=== PATIENT | female | born 1940 | race Caucasian/White ===

== ENCOUNTER 2016-05-04 19:42 | Inpatient (IN) | payer MEDICARE ==
[~2016-05-04] VITALS: Ht 167.6 cm; Wt 67.3 kg
[2016-05-04 19:43] VITALS: BP 121/59; PULSE 101; RESP 20; TEMP 98; O2SAT 93
[2016-05-04] MEDS ORDERED: cefTRIAXone INJ 2,000 MG in SODIUM CHLORIDE 0.9% INJ 100 ML IV STA (20:51)
[2016-05-04] MEDS ORDERED: AZITHROMYCIN INJ 500 MG in SODIUM CHLOR 0.9% 250 ML INJ 250 ML IV STA (20:51)
[2016-05-04] MEDS ORDERED: SODIUM CHLORIDE 0.9% FLUSH 5 ML FLUSH IVF PRN (21:00)
[2016-05-04] MEDS ORDERED: methylPREDNISolone SOD SUCC 125 MG/2 ML VIAL IVP ONE (21:00)
--- NOTE | 2016-05-04 21:02 | PD ---
HPI Chief Complaint: Respiratory Symptoms Time Seen by Provider: 20:51 Travel History International Travel<30 days: No Contact w/Intl Traveler<30days: No Traveled to known affect area: No History of Present Illness HPI The patient is a 75 year old female who presents to the [facility] emergency department with a history of cough and congestion that began a week ago. The patient reports that the cough is productive of yellow sputum. She reports that she did discuss this further with her airbrush artist photography, Dr. armstrong. She was started on a prednisone taper and Zithromax. She reports that she completed the course of these medications, however she continues to have worsening cough and shortness of breath with exertion. She has a history of COPD. She last used her nebulizer machine last night. The patient is on 2 L nasal cannula O2 at night and when necessary throughout the day. She denies having any chest pressure or chest pain. The patient denies recent fever, neck pain, abdominal pain, vomiting, diarrhea, urinary symptoms, or neurologic symptoms. [facility] Past Medical History Narrative Medical The patient's past medical history is significant for COPD. Past Surgical History Narrative Surgical The patient's past surgical history is significant for an appendectomy. Social History Alcohol Use: No Tobacco Use: No Substance Use: No Allergies-Medications (Allergen,Severity, Reaction): Coded Allergies: Codeine (Verified Allergy, Severe, Swelling, 05/04/16) Ciprofloxacin (Verified Allergy, Intermediate, Itching, 05/04/16) Review of Systems Except as stated in HPI: all other systems reviewed are Neg General / Constitutional: No: Fever Eyes: No: Visual changes HENT: Positive: Rhinorrhea, Congestion, No: Headaches Cardiovascular: Positive: Dyspnea on exertion, No: Chest Pain or Discomfort Respiratory: Positive: Cough, Shortness of Breath Gastrointestinal: No: Nausea, Vomiting, Diarrhea, Abdominal Pain Genitourinary: No: Dysuria Musculoskeletal: No: Pain Skin: No Rash Neurologic: No: Weakness, Focal Abnormalities, Change in Mentation, Slurred Speech, Sensory Disturbance Psychiatric: No: Depression Endocrine: No: Polydipsia Hematologic/Lymphatic: No: Easy Bruising Physical Exam Narrative General: The patient is a well-developed well-nourished female in no acute distress, saturating 93% on 3 L nasal cannula O2. Head and Neck exam: Head is normocephalic atraumatic. Eyes: EOMI, pupils are equal round and reactive to light. Nose: Midline septum with pink mucous membranes Mouth: Dentition unremarkable. Moist mucus membranes. Posterior oropharynx is not erythematous. No tonsillar hypertrophy. Uvula midline. Airway patent. Neck: No palpable lymphadenopathy. No nuchal rigidity. No thyromegaly. Cardiovascular: Regular rate and rhythm without murmurs, gallops, or rubs. Lungs: The patient has decreased breath sounds in bilateral bases with a frequent wet sounding cough on examination. Soft expiratory wheezes are audible to clear with coughing. No rhonchi are audible. No crackles. No accessory muscle use. Abdomen: Soft, without tenderness to palpation in all 4 quadrants of the abdomen. No guarding, rebound, or rigidity. Normal bowel sounds are audible. Extremities: No clubbing, cyanosis, or edema. 2+ pulses in all 4 extremities. No calf tenderness on palpation. Back: No spinous process tenderness to palpation. No costovertebral angle tenderness to palpation. Neurologic Exam: Grossly nonfocal. Skin Exam: No rash noted. Intact skin that is warm and dry. Data Data Last Documented VS Vital Signs Date Time Temp Pulse Resp B/P Pulse Ox O2 Delivery O2 Flow Rate FiO2 05/04/16 21:33 97 Nasal Cannula 2.00 05/04/16 21:05 22 05/04/16 19:43 98.0 101 121/59 Orders Electrocardiogram (05/04/16 20:51) Complete Blood Count With Diff (05/04/16 20:51) Comprehensive Metabolic Panel (05/04/16 20:51) Prothrombin Time / Inr (Pt) (05/04/16 20:51) Act Partial Throm Time (Ptt) (05/04/16 20:51) Lactic Acid Sepsis Protocol (05/04/16 20:51) Magnesium (Mg) (05/04/16 20:51) Lipase (05/04/16 20:51) Ckmb (Isoenzyme) Profile (05/04/16 20:51) Urinalysis - C+S If Indicated (05/04/16 20:51) Influenzae A/B Antigen (05/04/16 20:51) Blood Culture (05/04/16 20:51) Chest, Single Ap (05/04/16 20:51) Blood Glucose (05/04/16 20:51) Ecg Monitoring (05/04/16 20:51) Iv Access Insert/Monitor (05/04/16 20:51) Oximetry (05/04/16 20:51) Oxygen Administration (05/04/16 20:51) Ceftriaxone Inj (Rocephin Inj) (05/04/16 20:51) Azithromycin Inj (Zithromax Inj) (05/04/16 20:51) B-Type Natriuretic Peptide (05/04/16 20:51) Sodium Chloride 0.9% Flush (Ns Flush) (05/04/16 21:00) Methylprednisolone So Succ Inj (Solumedr (05/04/16 21:00) Albuterol-Ipratropium Neb (Duoneb Neb) (05/04/16 21:00) CKMB (05/04/16 21:10) CKMB% (05/04/16 21:10) Admit Order (Ed Use Only) (05/04/16 22:42) Consult Pulmonology (05/04/16 ) Labs Laboratory Tests Test 05/04/16 21:10 White Blood Count 15.7 TH/MM3 Red Blood Count 4.67 MIL/MM3 Hemoglobin 15.0 GM/DL Hematocrit 43.3 % Mean Corpuscular Volume 92.7 FL Mean Corpuscular Hemoglobin 32.1 PG Mean Corpuscular Hemoglobin 34.6 % Concent Red Cell Distribution Width 12.5 % Platelet Count 298 TH/MM3 Mean Platelet Volume 7.9 FL Neutrophils (%) (Auto) 60.2 % Lymphocytes (%) (Auto) 23.9 % Monocytes (%) (Auto) 12.6 % Eosinophils (%) (Auto) 2.9 % Basophils (%) (Auto) 0.4 % Neutrophils # (Auto) 9.5 TH/MM3 Lymphocytes # (Auto) 3.8 TH/MM3 Monocytes # (Auto) 2.0 TH/MM3 Eosinophils # (Auto) 0.5 TH/MM3 Basophils # (Auto) 0.1 TH/MM3 CBC Comment DIFF FINAL Differential Comment Prothrombin Time 11.4 SEC Prothromb Time International 1.0 RATIO Ratio Activated Partial 29.6 SEC Thromboplast Time Sodium Level 138 MEQ/L Potassium Level 3.6 MEQ/L Chloride Level 102 MEQ/L Carbon Dioxide Level 27.5 MEQ/L Anion Gap 9 MEQ/L Blood Urea Nitrogen 12 MG/DL Creatinine 0.88 MG/DL Estimat Glomerular Filtration 63 ML/MIN Rate Random Glucose 93 MG/DL Lactic Acid Level 1.1 mmol/L Calcium Level 8.5 MG/DL Magnesium Level 2.1 MG/DL Total Bilirubin 0.4 MG/DL Aspartate Amino Transf 15 U/L (AST/SGOT) Alanine Aminotransferase 23 U/L (ALT/SGPT) Alkaline Phosphatase 57 U/L Total Creatine Kinase 136 U/L Creatine Kinase MB 1.9 NG/ML B-Type Natriuretic Peptide 60 PG/ML Total Protein 6.8 GM/DL Albumin 3.2 GM/DL Lipase 97 U/L [facility] Medical Decision Making Medical Screen Exam Complete: Yes Emergency Medical Condition: Yes Medical Record Reviewed: Yes Interpretation(s) Last Impressions Chest X-Ray 05/04/162050 Signed Impressions: Service Date/Time: Wednesday, May 04, 2016 21:13 - CONCLUSION: Bibasilar consolidation. Underlying emphysema. Bhupendra Coe MD Differential Diagnosis COPD exacerbation, versus pneumonia, versus new-onset congestive heart failure, versus pulmonary embolism. Narrative Course During the course of the patients emergency department visit, the patients history, examination, and differential diagnosis were reviewed with the patient. The patient had IV access obtained and blood work sent for analysis. The patient was placed on a site monitor with oximetry and blood pressure monitoring. An EKG was done on arrival. The patient was noted to have a sinus rhythm with a sinus arrhythmia, short IN interval, heart rate of 85, moderate intraventricular conduction delay with QRS duration of [address] segment elevation or depression, T waves inverted in V1. Blood cultures times to worsen, lactic acid was sent for analysis. The patient was noted to have room air saturations of 88% and was placed on 3 L nasal cannula O2, her oxygen saturation went up to 97-98%. The patient was provided DuoNeb nebs 2, Solu-Medrol 125 mg IV, Rocephin 1 g IV , Zithromax 500 IV. The patients laboratory studies were reviewed and remarkable for a white count of 15.7, hemoglobin 15, platelets 298 with 12.6 monocytes, CMP is remarkable for GFR 63, albumin 3.2, BNP is 60, lactic acid is 1.1, PT PTT within normal limits, urinalysis unremarkable. Radiology studies were reviewed and remarkable for bibasilar consolidation on her chest x-ray. The patients results were discussed with the patient, including the plan of care. I explained that further testing and/ or monitoring is indicated based on the patients history, examination, and/ or laboratory findings. Therefore, I recommended admission for additional evaluation. The patient expressed understanding and was agreeable with this plan. The patient was admitted to the hospital in stable condition and sent to a bed under the care of Dr. Campos. Sepsis Criteria SIRS Criteria (2 or more): Heart rate over 90, WBC > 75370, < 4000 or > 10% bands Sepsis Criteria (SIRS+source): Infect source susp/known Criteria Outcome: Meets SIRS criteria, Meets sepsis criteria Physician Communication Physician Communication The patient's case is discussed with Dr. Smith who did agree to admit the patient for further evaluation and treatment at this time. Diagnosis Primary Impression: Pneumonia Qualified Code: J18.9 - Pneumonia of both lower lobes due to infectious organism Additional Impressions: Hypoxemia COPD exacerbation Admitting Information Admitting Physician Requests: it Yana Mascorro MD May 04, 2016 21:02
[2016-05-04 21:04] VITALS: RESP 18; O2SAT 95
[2016-05-04 21:33] VITALS: O2SAT 97
[2016-05-04] MEDS: RESP: ALBUTEROL 2.5 MG/IPRATROPIUM 0.5 MG NEB (SCH) INH (21:33)
--- NOTE | 2016-05-04 21:33 | RADRPT ---
EXAM DATE/TIME: 05/04/2016 21:13 [facility] COMPARISON: No previous studies available for comparison. INDICATIONS : Cough, congestion. Evaluate for pneumonia. MEDICAL HISTORY : None. SURGICAL HISTORY : None. ENCOUNTER: Initial ACUITY: 1 week PAIN SCORE: 0/10 LOCATION: Bilateral chest FINDINGS: Bibasilar infiltrate superimposed on emphysema noted. No effusion. No pneumothorax. Heart size within normal limits. Thoracic aorta is tortuous and atherosclerotic. CONCLUSION: Bibasilar consolidation. Underlying emphysema. Bhupendra Coe MD on May 04, 2016 at 21:31 Board Certified Radiologist. This report was verified electronically.
[2016-05-04 21:39] LABS: AUTOMATED NEUTROPHIL # 9.5 TH/MM3 (1.8-7.7); BASOPHIL # 0.1 TH/MM3 (0-0.2); BASOPHIL % 0.4 % (0.0-2.0); EOSINOPHIL # 0.5 TH/MM3 (0-0.4); EOSINOPHIL % 2.9 % (0.0-4.0); HEMATOCRIT 43.3 % (35.0-46.0); HEMO FLAGS DIFF FINAL; LYMPH % 23.9 % (9.0-44.0); LYMPHOCYTE # 3.8 TH/MM3 (1.0-4.8); MEAN CELL VOLUME 92.7 FL (80.0-100.0); MEAN CORPUSCULAR HEMOGLOBIN 32.1 PG (27.0-34.0); MEAN CORPUSCULAR HGB CONC 34.6 % (32.0-36.0); MONO % 12.6 % (0.0-8.0); NEUT % 60.2 % (16.0-70.0); PLATELET COUNT 298 TH/MM3 (150-450); RED BLOOD COUNT 4.67 MIL/MM3 (4.00-5.30); RED CELL DISTRIBUTION WIDTH 12.5 % (11.6-17.2); WHITE BLOOD COUNT 15.7 TH/MM3 (4.0-11.0)
[2016-05-04 21:54] LABS: APTT (PATIENT) 29.6 SEC (24.3-30.1); PROTHROMBIN TIME - PATIENT 11.4 SEC (9.8-11.6)
[2016-05-04 21:57] LABS: ANION GAP 9 MEQ/L (5-15); AST (GOT) 15 U/L (15-37); BICARBONATE 27.5 MEQ/L (21.0-32.0); BLOOD UREA NITROGEN 12 MG/DL (7-18); CHLORIDE 102 MEQ/L (98-107); GLOMERULAR FILTRATION RATE 63 ML/MIN (>89); MAGNESIUM 2.1 MG/DL (1.5-2.5); POTASSIUM 3.6 MEQ/L (3.5-5.1); SODIUM (NA) 138 MEQ/L (136-145)
[2016-05-04 22:00] LABS: ALKALINE PHOSPHATASE 57 U/L (45-117); ALT (GPT) 23 U/L (10-53); CREATINE KINASE 136 U/L (26-192); TOTAL BILIRUBIN ADULT 0.4 MG/DL (0.2-1.0)
[2016-05-04 22:14] LABS: CKMB 1.9 NG/ML (0.5-3.6)
[2016-05-04 22:55] VITALS: BP 125/65; PULSE 110; RESP 20; O2SAT 93
[2016-05-04 23:14] LABS: BLOOD, URINE NEG (NEG); GLUCOSE,URINE NEG (NEG); KETONE, URINE NEG (NEG); NITRITE,URINE NEG (NEG); PH, URINE 5.5 (5.0-8.5); SQUAMOUS EPITHELIAL CELL URINE 1 /hpf (0-5); URINE COLOR YELLOW (YELLW/STRAW)
[2016-05-04 23:31] LABS: COMMENT (UR) CATH-CULT NOT IND; CULTURE IF INDICATED CATH CULTURE NOT IND
[2016-05-04] MEDS ORDERED: NALOXONE HCL 0.4 MG/ML AMP IV PRN (23:45)
[2016-05-04] MEDS ORDERED: SODIUM CHLORIDE 0.9% FLUSH 5 ML FLUSH FLUSH PRN (23:45)
[2016-05-04] MEDS ORDERED: ACETAMINOPHEN 325 MG TAB PO ONE (23:45)
[2016-05-04] MEDS ORDERED: ACETAMINOPHEN 325 MG TAB PO PRN (23:45)
[2016-05-05] VITALS (9 sets, daily range): BP systolic 106–126; BP diastolic 58–75; PULSE 82–98; RESP 17–24; TEMP 97.8–99.8; O2SAT 93–97
[2016-05-05] MEDS: SODIUM CHLORIDE 0.9% FLUSH 5 ML FLUSH FLUSH SCH ×2 (00:09→20:32)
[2016-05-05 06:16] LABS: BASOPHIL % 0.1 % (0.0-2.0); EOSINOPHIL % 0.1 % (0.0-4.0); HEMATOCRIT 41.6 % (35.0-46.0); HEMO FLAGS DIFF FINAL; LYMPH % 8.7 % (9.0-44.0); LYMPHOCYTE # 1.3 TH/MM3 (1.0-4.8); MEAN CORPUSCULAR HGB CONC 34.4 % (32.0-36.0); MONO % 1.9 % (0.0-8.0); NEUT % 89.2 % (16.0-70.0); PLATELET COUNT 278 TH/MM3 (150-450); RED BLOOD COUNT 4.47 MIL/MM3 (4.00-5.30); RED CELL DISTRIBUTION WIDTH 12.7 % (11.6-17.2); WHITE BLOOD COUNT 14.6 TH/MM3 (4.0-11.0)
[2016-05-05 07:06] LABS: ALKALINE PHOSPHATASE 54 U/L (45-117); ALT (GPT) 22 U/L (10-53); ANION GAP 10 MEQ/L (5-15); AST (GOT) 14 U/L (15-37); BICARBONATE 25.6 MEQ/L (21.0-32.0); BLOOD UREA NITROGEN 9 MG/DL (7-18); CHLORIDE 106 MEQ/L (98-107); GLOMERULAR FILTRATION RATE 80 ML/MIN (>89); POTASSIUM 4.4 MEQ/L (3.5-5.1); SODIUM (NA) 142 MEQ/L (136-145); TOTAL BILIRUBIN ADULT 0.3 MG/DL (0.2-1.0)
[2016-05-05] MEDS ORDERED: TIOT1AER INH (09:06)
[2016-05-05] MEDS ORDERED: BENZ100 PO (09:06)
[2016-05-05] MEDS ORDERED: BECL0.07 INH (09:06)
[2016-05-05] MEDS ORDERED: ALBU1.25 NEB (09:06)
[2016-05-05] MEDS ORDERED: PREM0.3T2 PO (09:06)
--- NOTE | 2016-05-05 16:11 | HHI.HP ---
History of Present Illness Service Attending Primary Care Physician Luis Alberto Campos, DO Admission Diagnosis Pneumonia, COPD exacerbation Diagnoses: (1) Pneumonia Diagnosis: Principal (2) COPD exacerbation Diagnosis: Secondary (3) Hypoxemia Diagnosis: Secondary History of Present Illness This is a very pleasant 75 year old female who came to the ED with dyspnea and unrelenting productive cough. She follows with Dr. Mikael Steen for chronic COPD and had started taking azithromycin and medrol dose-cristobal per his instructions but became more SOB and came to the ED. She was treated with IV antibiotics, steroids and nebulizers. She is currently stable and feeling better on nasal canula O2 Sepsis Criteria SIRS Criteria (2 or more): Heart rate over 90, RR > 20 or PaCO2 < 32, WBC > 54120, < 4000 or > 10% bands Sepsis Criteria (SIRS+source): Infect source susp/known Criteria Outcome: Meets SIRS criteria, Meets sepsis criteria Review of Systems Respiratory: COMPLAINS OF: Cough, Wheezing, Sputum production, Shortness of breath Past Family Social History Allergies: Coded Allergies: Codeine (Verified Allergy, Severe, Swelling, 05/04/16) Ciprofloxacin (Verified Allergy, Intermediate, Itching, 05/04/16) Past Medical History COPD Past Surgical History Appendectomy Reported Medications Reported Meds & Active Scripts Active Reported Prempro Blister Pack (Estrogens Conj/Medroxyprogest Acet) 0.3-1.5 Mg Tab 1 Tab PO DAILY Tessalon Perles (Benzonatate) 100 Mg Cap 100 Mg PO TID PRN Albuterol Neb (Albuterol Sulfate) 1.25 Mg/3 Ml Neb 1.25 Mg NEB Q4HR NEB PRN Qvar Inh (Beclomethasone Dipropionate) 40 Mcg/Act Aero 1 Puff INH BID Stiolto Respimat Inh (Tiotropium-Olodaterol Inh) 2.5-2.5 Mcg/Act Aero 2 Puff INH DAILY Active Ordered Medications Current Medications Medications (Trade) Dose Ordered Sig/Tigist Route Start Time Stop Time Status Last Admin (NS Flush) 2 ml UNSCH PRN FLUSH 05/04/16 23:45 (NS Flush) 2 ml BID FLUSH 05/05/16 09:00 05/05/16 00:09 (Tylenol) 650 mg Q4H PRN PO 05/04/16 23:45 (Narcan Inj) 0.4 mg UNSCH PRN IV 05/04/16 23:45 Family History Mother at age 73 of CVA, Father at age 73 of emphysema. Social History Quit smoking 20 years ago. Physical Exam Vital Signs Vital Signs Date Time Temp Pulse Resp B/P Pulse Ox O2 Delivery O2 Flow Rate FiO2 05/05/16 14:07 95 Nasal Cannula 2 05/05/16 12:00 82 24 124/74 95 Nasal Cannula 2 05/05/16 10:15 Room Air 05/05/16 09:34 98 20 126/75 93 Nasal Cannula 2 05/05/16 07:52 97 3.00 05/05/16 07:52 88 18 106/58 95 Nasal Cannula 2 05/05/16 06:24 85 20 114/60 95 Nasal Cannula 05/04/16 22:55 110 20 125/65 93 Nasal Cannula 05/04/16 21:33 97 Nasal Cannula 2.00 05/04/16 21:05 22 05/04/16 21:04 18 95 Nasal Cannula 05/04/16 21:03 95 Nasal Cannula 2 05/04/16 19:43 98.0 101 20 121/59 93 Room Air Physical Exam GENERAL: Well-nourished, well-developed patient. SKIN: Warm and dry. HEAD: Normocephalic. EYES: No scleral icterus. No injection or drainage. NECK: Supple, trachea midline. No JVD or lymphadenopathy. CARDIOVASCULAR: Regular rate and rhythm without murmurs, gallops, or rubs. RESPIRATORY: Breath sounds equal, diminished bilaterally with scatterred rhonchi , occasional expiratory wheeze, productive cough. No accessory muscle use. GASTROINTESTINAL: Abdomen soft, non-tender, nondistended. EXTREMITIES: No cyanosis, or edema. NEUROLOGICAL: Awake, alert, and oriented x 3. Non-focal. Laboratory Laboratory Tests Test 05/04/16 05/04/16 05/05/16 21:10 22:50 05:52 White Blood Count 15.7 14.6 Red Blood Count 4.67 4.47 Hemoglobin 15.0 14.3 Hematocrit 43.3 41.6 Mean Corpuscular Volume 92.7 93.0 Mean Corpuscular Hemoglobin 32.1 32.0 Mean Corpuscular Hemoglobin 34.6 34.4 Concent Red Cell Distribution Width 12.5 12.7 Platelet Count 298 278 Mean Platelet Volume 7.9 7.8 Neutrophils (%) (Auto) 60.2 89.2 Lymphocytes (%) (Auto) 23.9 8.7 Monocytes (%) (Auto) 12.6 1.9 Eosinophils (%) (Auto) 2.9 0.1 Basophils (%) (Auto) 0.4 0.1 Neutrophils # (Auto) 9.5 13.0 Lymphocytes # (Auto) 3.8 1.3 Monocytes # (Auto) 2.0 0.3 Eosinophils # (Auto) 0.5 0.0 Basophils # (Auto) 0.1 0.0 CBC Comment DIFF FINAL DIFF FINAL Differential Comment Prothrombin Time 11.4 Prothromb Time International 1.0 Ratio Activated Partial 29.6 Thromboplast Time Sodium Level 138 142 Potassium Level 3.6 4.4 Chloride Level 102 106 Carbon Dioxide Level 27.5 25.6 Anion Gap 9 10 Blood Urea Nitrogen 12 9 Creatinine 0.88 0.71 Estimat Glomerular Filtration 63 80 Rate Random Glucose 93 152 Lactic Acid Level 1.1 Calcium Level 8.5 8.7 Magnesium Level 2.1 Total Bilirubin 0.4 0.3 Aspartate Amino Transf 15 14 (AST/SGOT) Alanine Aminotransferase 23 22 (ALT/SGPT) Alkaline Phosphatase 57 54 Total Creatine Kinase 136 Creatine Kinase MB 1.9 B-Type Natriuretic Peptide 60 Total Protein 6.8 6.5 Albumin 3.2 1.9 Lipase 97 Urine Color YELLOW Urine Turbidity CLEAR Urine pH 5.5 Urine Specific [place] 1.011 Urine Protein NEG Urine Glucose (UA) NEG Urine Ketones NEG Urine Occult Blood NEG Urine Nitrite NEG Urine Bilirubin NEG Urine Urobilinogen LESS THAN 2.0 Urine Leukocyte Esterase NEG Urine RBC LESS THAN 1 Urine WBC LESS THAN 1 Urine Squamous Epithelial 1 Cells Microscopic Urinalysis Comment CATH-CULT NOT IND Date/Time Procedure Status Source Growth 05/05/16 14:05 Gram Stain Received Sputum Expectorated Sputum Pending 05/05/16 14:05 Sputum Culture Received Sputum Expectorated Sputum Pending 05/04/16 21:10 Aerobic Blood Culture - Preliminary Resulted Blood Peripheral NO GROWTH IN 1 DAY 05/04/16 21:10 Anaerobic Blood Culture - Preliminary Resulted Blood Peripheral NO GROWTH IN 1 DAY Result Diagram: 05/05/16 0552 05/05/1652 Imaging Last Impressions Chest X-Ray 05/04/162050 Signed Impressions: Service Date/Time: Wednesday, May 04, 2016 21:13 - CONCLUSION: Bibasilar consolidation. Underlying emphysema. Bhupendra Coe MD Assessment and Plan Problem List: (1) Hypoxemia Status: Acute Plan: Stable on O2 via NC. (2) Pneumonia Status: Acute Plan: On antibiotics, pulmonary consultation to Dr. Steen. (3) COPD exacerbation Status: Acute Plan: Wheezing, dyspneic on admission, home meds resumed. Improving. (4) Cough Status: Acute Plan: Sputum specimen ordered. Assessment and Plan Assessment and plan d/w pt., RN, Dr. Campso. Problem Qualifiers (1) Pneumonia: Qualified Code: J18.9 - Pneumonia of both lower lobes due to infectious organism Anahi Hoang May 05, 2016 16:11
[2016-05-05] MEDS ORDERED: NON-FORMULARY DRUG (Tiotropium-Olodaterol Inh (Stiolto Respimat Inh) 2 PUFF) INH SCH (16:15)
[2016-05-05] MEDS: BENZONATATE 100 MG CAP PO PRN (17:34)
--- NOTE | 2016-05-05 18:37 | EKG ---
Date Performed: 05/04/2016 Time Performed: 20:44:04 PTAGE: 75 years EKG: Sinus rhythm WITH SINUS ARRHYTHMIA WITH SHORT AL INTERVAL MODERATE INTRAVENTRICULAR CONDUCTION DELAY MODERATE ST DEPRESSION ABNORMAL ECG NO PREVIOUS TRACING DOCTOR: Dimitris Estrada Interpretating Date/Time 05/05/2016 18:35:40
[2016-05-05] MEDS: RESP: ALBUTEROL 2.5 MG/IPRATROPIUM 0.5 MG NEB (SCH) NEB (19:11)
--- NOTE | 2016-05-05 20:01 | MB ---
cc: YVETTE MARSHALL DATE OF CONSULTATION 05/05/2016 HISTORY OF THE PRESENT ILLNESS Ms. Alegre is a 75-year-old white female whom I have followed for 3 years with moderately severe COPD. She was a former smoker of about 80-100 pack-years although she quit smoking back in the mid s. I last saw her in the office in January at which time she was stable although she had had an exacerbation of her COPD last summer. Her regimen included Qvar and Stiolto and oxygen for sleep. She had a nebulizer but rarely used it. Pulmonary functions are in the range of 40-50% with a low diffusing capacity. The patient has not previously been hospitalized with her disease but she had another recent exacerbation in late March, was treated with a Z-Zen and prednisone but symptoms persisted and she was more short of breath. I advised her to present to the emergency room for more acute therapy. She did so and on presentation was hypoxic and tachypneic. Received several aerosol treatments along with IV corticosteroids and oxygen and is feeling much better today. She had a chest x-ray which revealed bibasilar infiltrates. White count was 15,000. Initial blood cultures have been negative and a sputum is pending. She has been afebrile. She has had no hemoptysis. No chest pain. Not aware of fever. Cough and shortness of breath were the primary symptoms. No swelling in her legs. No unusual inhalation exposures or recent unusual travel. PAST MEDICAL HISTORY 1. Really otherwise unremarkable. No cardiovascular history. No history of malignancy. She does not have frequent exacerbations of her disease or any recent history of pneumonia. 2. She has had a prior appendectomy. SOCIAL HISTORY Former smoker. Rarely if ever uses alcohol. She lives alone, . No unusual animal exposures. FAMILY HISTORY Father of complications of COPD. Mother of thyroid disease and a history of strokes. Three children in good health. REVIEW OF SYSTEMS Other than that noted above no gastrointestinal symptoms, nausea, vomiting or change in bowel habits recently. No chronic edema. ALLERGIES CODEINE, CIPRO MAY CAUSE ITCHING. MEDICATIONS Reviewed in the EMR. PHYSICAL EXAMINATION GENERAL: Comfortable at rest. VITAL SIGNS: Afebrile, respirations 18, temperature is 98, blood pressure 120/60, O2 saturation 97% on 2 liters, pulse is 90. HEENT: Sclerae anicteric. Pharynx is clear. Mucous membranes are moist. No adenopathy in the neck or supraclavicular region. LUNGS: Her chest is actually quite clear, somewhat diminished but there was only faint wheezes. No congestion or rhonchi. HEART: Regular rhythm. No harsh murmur. No audible S3. EXTREMITIES: No peripheral edema, calf tenderness, cyanosis or clubbing. DISCUSSION Miss Alegre presents with persistent exacerbation of her underlying COPD. She has responded very well to initial therapy in the emergency room and I will continue her nebulized treatments three times a day, place her on Symbicort here in the hospital along with a short course of oral prednisone. She does have purulent sputum that I saw at the bedside. We will collect a sputum but I am going to put her on Amoxil as well. We will do a home O2 walk test tomorrow, if her oxygen saturation has returned to normal and she is feeling this well she could probably continue treatment as an outpatient. Further diagnostic and/or therapeutic intervention will depend on her ongoing response. R. MD HILDA Montoya/KK /6:41 PM /7:46 PM
[2016-05-05] MEDS: BUDESONIDE-FORMOTEROL 160/4.5 MCG INHALER INH SCH (20:36)
[2016-05-05] MEDS: AMOXICILLIN (TRIHYDRATE) 500 MG CAP PO SCH (20:36)
[2016-05-05] MEDS: predniSONE 20 MG TAB PO SCH (20:36)
[2016-05-05] MEDS ORDERED: BECLOMETHASONE DIPROPIONATE 40 MCG/ACT 8.7 GM INHALER INH SCH (21:00)
[2016-05-06] VITALS (10 sets, daily range): BP systolic 97–122; BP diastolic 53–73; PULSE 70–90; RESP 18–19; TEMP 97.6–98.2; O2SAT 92–97
[2016-05-06] MEDS: BENZONATATE 100 MG CAP PO PRN ×2 (04:48→17:18)
[2016-05-06] MEDS: RESP: ALBUTEROL 2.5 MG/IPRATROPIUM 0.5 MG NEB (SCH) NEB ×3 (07:50→19:03)
[2016-05-06] MEDS: SODIUM CHLORIDE 0.9% FLUSH 5 ML FLUSH FLUSH SCH ×2 (07:59→20:09)
[2016-05-06] MEDS: predniSONE 20 MG TAB PO SCH ×2 (08:00→20:10)
[2016-05-06] MEDS: BUDESONIDE-FORMOTEROL 160/4.5 MCG INHALER INH SCH ×2 (08:01→20:11)
[2016-05-06] MEDS: AMOXICILLIN (TRIHYDRATE) 500 MG CAP PO SCH ×2 (08:06→20:10)
[2016-05-06] MEDS ORDERED: CONJUGATED ESTROGENS PO SCH (09:00)
[2016-05-06] MEDS ORDERED: MEDROXYPROGESTERONE PO SCH (09:00)
[2016-05-06] MEDS ORDERED: [UNRECOGNIZED DRUG - OTHER] PO SCH (09:00)
[2016-05-06] MEDS ORDERED: PT:STIOLTO RESPIMAT INH SCH (09:00)
--- NOTE | 2016-05-06 09:43 | RADRPT ---
EXAM DATE/TIME: 05/06/2016 08:53 [facility] COMPARISON: CHEST SINGLE AP, May 04, 2016, 21:13. INDICATIONS : Cough and shortness of breath. MEDICAL HISTORY : Chronic obstructive pulmonary disease. SURGICAL HISTORY : None. ENCOUNTER: Initial ACUITY: 1 day PAIN SCORE: 0/10 LOCATION: Bilateral chest FINDINGS: There is severe bullous emphysema, worse on the right with crowding of the lung vasculature inferiorl y and some linear atelectasis or scarring. Trace pleural fluid bilaterally. Considering slight differ ences in technique probably no significant change from May 04. Heart size normal. Atherosclerotic an d tortuous aorta. CONCLUSION: 1. Bullous emphysema with mild hyperinflation. Trace pleural fluid. Linear scarring or atelectasis at the bases. Trell Shah MD on May 06, 2016 at 9:38 Board Certified Radiologist. This report was verified electronically.
--- NOTE | 2016-05-06 13:17 | HHI.PR ---
Subjective Remarks Feeling better today, still a little weak. Objective Vital Signs Date Time Temp Pulse Resp B/P Pulse Ox O2 Delivery O2 Flow Rate FiO2 05/06/16 12:18 97.9 78 18 98/60 95 05/06/16 09:20 3.00 05/06/16 08:37 98.2 70 19 97/53 95 05/06/16 08:07 90 05/06/16 07:54 92 Nasal Cannula 2.00 05/06/16 04:00 98.0 79 18 112/60 97 05/06/16 00:10 97.9 80 18 115/60 96 05/05/16 21:40 98.1 84 17 113/58 95 05/05/16 20:00 89 05/05/16 19:11 97 Nasal Cannula 2.00 05/05/16 16:00 99.8 83 20 113/61 95 05/05/16 14:30 97.8 82 20 119/69 95 05/05/16 14:07 95 Nasal Cannula 2 I/O 05/05/16 05/05/16 05/05/16 05/06/16 05/06/16 05/06/16 07:00 15:00 23:00 07:00 15:00 23:00 Intake Total 560 ml 750 ml 700 ml Output Total 0 ml Balance 560 ml 750 ml 700 ml Intake Oral 560 ml 750 ml 700 ml Output Urine Total 0 ml # Voids 2 2 # Bowel Movements 0 0 0 Result Diagram: 05/05/16 0552 05/05/16 0552 Imaging Last Impressions Chest X-Ray 05/06/16 0800 Signed Impressions: Service Date/Time: April 08:53 - CONCLUSION: 1. Bullous emphysema with mild hyperinflation. Trace pleural fluid. Linear scarring or atelectasis at the bases. Trell Shah MD Objective Remarks GENERAL: Well-nourished, well-developed patient. SKIN: Warm and dry. HEAD: Normocephalic. EYES: No scleral icterus. No injection or drainage. NECK: Supple, trachea midline. No JVD or lymphadenopathy. CARDIOVASCULAR: Regular rate and rhythm without murmurs, gallops, or rubs. RESPIRATORY: Breath sounds equal, diminished bilaterally. No wheezing. No accessory muscle use. GASTROINTESTINAL: Abdomen soft, non-tender, nondistended. EXTREMITIES: No cyanosis, or edema. NEUROLOGICAL: Awake, alert, and oriented x 3. Non-focal. Medications and IVs Current Medications Medications (Trade) Dose Ordered Sig/Tigist Route Start Time Stop Time Status Last Admin (NS Flush) 2 ml UNSCH PRN FLUSH 05/04/16 23:45 (NS Flush) 2 ml BID FLUSH 05/05/16 09:00 05/06/16 07:59 (Tylenol) 650 mg Q4H PRN PO 05/04/16 23:45 (Narcan Inj) 0.4 mg UNSCH PRN IV 05/04/16 23:45 (Tessalon) 100 mg TID PRN PO 05/05/16 16:15 05/06/16 04:48 (Symbicort 160-4.5 Inh) 1 puff Q12HR INH 05/05/16 21:00 05/06/16 08:01 (Deltasone) 20 mg BID PO 05/05/16 21:00 05/06/16 08:00 (Trimox) 500 mg BID PO 05/05/16 21:00 05/06/16 08:06 Patient Own Medication PT OWN MED: STIO... DAILY INH 05/06/16 09:00 Hold Patient Own Medication PT OWN MED: KATIE... DAILY PO 05/06/16 09:00 Hold Assessment and Plan Problem List: (1) Hypoxemia Status: Acute Plan: Stable on O2 via NC. D/W Dr. Steen, he is increasing home O2 to include daytime use. (2) Pneumonia Status: Acute Plan: On antibiotics, Dr. Steen following. Improving on therapy. (3) COPD exacerbation Status: Acute Plan: Improving. Likely DC tomorrow. Planning to stay with her daughter for a week or so until she feels better so declined [facility]. (4) Cough Status: Acute Plan: Sputum specimen shows no predominant morphology. Assessment and Plan Assessment and plan d/w pt., RN, Dr. Steen, Dr. Campos. Problem Qualifiers (1) Pneumonia: Qualified Code: J18.9 - Pneumonia of both lower lobes due to infectious organism Anahi Hoang May 06, 2016 13:17
[2016-05-07] VITALS: BP 109/64; PULSE 77; RESP 19; TEMP 97.7; O2SAT 96
[2016-05-07] MEDS: BENZONATATE 100 MG CAP PO PRN (01:44)
[2016-05-07 04:00] VITALS: BP 99/62; PULSE 62; RESP 18; TEMP 97.9; O2SAT 95
[2016-05-07 07:52] VITALS: PULSE 62
[2016-05-07] MEDS: AMOXICILLIN (TRIHYDRATE) 500 MG CAP PO SCH (07:57)
[2016-05-07] MEDS: predniSONE 20 MG TAB PO SCH (07:57)
[2016-05-07] MEDS: SODIUM CHLORIDE 0.9% FLUSH 5 ML FLUSH FLUSH SCH (07:58)
[2016-05-07] MEDS: BUDESONIDE-FORMOTEROL 160/4.5 MCG INHALER INH SCH (07:58)
[2016-05-07] MEDS: RESP: ALBUTEROL 2.5 MG/IPRATROPIUM 0.5 MG NEB (SCH) NEB ×2 (08:16→15:58)
[2016-05-07 08:18] VITALS: O2SAT 96
[2016-05-07 08:23] VITALS: BP 124/66; PULSE 79; RESP 20; TEMP 98.1; O2SAT 92
[2016-05-07 12:18] LABS: AUTOMATED NEUTROPHIL # 14.6 TH/MM3 (1.8-7.7); BASOPHIL # 0.1 TH/MM3 (0-0.2); BASOPHIL % 0.5 % (0.0-2.0); EOSINOPHIL % 0.2 % (0.0-4.0); HEMATOCRIT 41.6 % (35.0-46.0); LYMPHOCYTE # 1.9 TH/MM3 (1.0-4.8); MEAN CELL VOLUME 94.1 FL (80.0-100.0); MEAN CORPUSCULAR HEMOGLOBIN 31.9 PG (27.0-34.0); MEAN CORPUSCULAR HGB CONC 33.9 % (32.0-36.0); MONO % 4.9 % (0.0-8.0); NEUT % 83.4 % (16.0-70.0); PLATELET COUNT 308 TH/MM3 (150-450); RED BLOOD COUNT 4.42 MIL/MM3 (4.00-5.30); RED CELL DISTRIBUTION WIDTH 12.9 % (11.6-17.2); WHITE BLOOD COUNT 17.5 TH/MM3 (4.0-11.0)
[2016-05-07 12:27] LABS: HEMO FLAGS AUTO DIFF
[2016-05-07 12:32] LABS: BICARBONATE 30.6 MEQ/L (21.0-32.0); POTASSIUM 3.7 MEQ/L (3.5-5.1)
[2016-05-07 14:37] LABS: BANDS 5 % (0-6); METAMYELOCYTES 1 % (0-1); NEUTROPHIL # MANUAL DIFF 14.5 TH/MM3 (1.8-7.7); PLATELET ESTIMATE SMEAR NORMAL (NORMAL); PLATELET MORPHOLOGY NORMAL (NORMAL); POLYS (SEG NEUTROPHILS) 77 % (16-70); SCAN/DIFF FINAL DIFF MANUAL; WBC DIFF SAMPLE 100
[2016-05-07] MEDS ORDERED: SYMB160A INH (15:27)
[2016-05-07] MEDS ORDERED: PRED10 PO (15:27)
[2016-05-07] MEDS ORDERED: PRED20 PO (15:27)
[2016-05-07] MEDS ORDERED: AMOX500C PO (15:27)
[2016-05-07] MEDS ORDERED: IPRASOL NEB (15:27)
--- NOTE | 2016-05-07 15:32 | HHI.DS ---
Discharge Summary Admission Date May 04, 2016 at 22:46 Admitting Diagnosis Pneumonia, COPD exacerbation (1) Pneumonia Diagnosis: Principal (2) Hypoxemia Diagnosis: Secondary (3) COPD exacerbation Diagnosis: Secondary Brief History This is a very pleasant 75 year old female who came to the ED with dyspnea and unrelenting productive cough. She follows with Dr. Mikael Steen for chronic COPD and had started taking azithromycin and medrol dose-cristobal per his instructions but became more SOB and came to the ED. She was treated with IV antibiotics, steroids and nebulizers. She is currently stable and feeling better on nasal canula O2 CBC/BMP: 05/07/16 1209 05/07/16 1209 Significant Findings Laboratory Tests Test 05/04/16 05/05/16 05/07/16 21:10 05:52 12:09 White Blood Count 15.7 TH/MM3 14.6 TH/MM3 17.5 TH/MM3 (4.0-11.0) (4.0-11.0) (4.0-11.0) Monocytes (%) (Auto) 12.6 % (0.0-8.0) Neutrophils # (Auto) 9.5 TH/MM3 13.0 TH/MM3 14.6 TH/MM3 (1.8-7.7) (1.8-7.7) (1.8-7.7) Monocytes # (Auto) 2.0 TH/MM3 (0-0.9) Eosinophils # (Auto) 0.5 TH/MM3 (0-0.4) Estimat Glomerular Filtration 63 ML/MIN (>89) 80 ML/MIN (>89) 61 ML/MIN (>89) Rate Albumin 3.2 GM/DL 1.9 GM/DL (3.4-5.0) (3.4-5.0) Neutrophils (%) (Auto) 89.2 % 83.4 % (16.0-70.0) (16.0-70.0) Lymphocytes (%) (Auto) 8.7 % (9.0-44.0) Random Glucose 152 MG/DL 123 MG/DL (74-106) (74-106) Aspartate Amino Transf 14 U/L (15-37) (AST/SGOT) Neutrophils % (Manual) 77 % (16-70) Neutrophils # (Manual) 14.5 TH/MM3 (1.8-7.7) Imaging Last Impressions Chest X-Ray 05/06/16 0800 Signed Impressions: Service Date/Time: April 08:53 - CONCLUSION: 1. Bullous emphysema with mild hyperinflation. Trace pleural fluid. Linear scarring or atelectasis at the bases. Trell Shah MD PE at Discharge GENERAL: Well-nourished, well-developed patient. SKIN: Warm and dry. HEAD: Normocephalic. EYES: No scleral icterus. No injection or drainage. NECK: Supple, trachea midline. No JVD or lymphadenopathy. CARDIOVASCULAR: Regular rate and rhythm without murmurs, gallops, or rubs. RESPIRATORY: Breath sounds equal, diminished bilaterally. No wheezing. No accessory muscle use. GASTROINTESTINAL: Abdomen soft, non-tender, nondistended. EXTREMITIES: No cyanosis, or edema. NEUROLOGICAL: Awake, alert, and oriented x 3. Non-focal. Hospital Course Admitted with dyspnea, found to have PNA. Pulmonology was consulted and antibiotics, steroids and nebulizers given with subsequent improvement. Patient was previously on O2 only atnight, but will now need it additionally during the day. She will follow with Dr. Steen for further modifications. On she was deemed stable for discharge home with her daughter. C was refused. Pt Condition on Discharge: Stable Discharge Disposition: Discharge Home Discharge Instructions DIET: Follow Instructions for: As Tolerated, No Restrictions Activities you can perform: Regular-No Restrictions New Medications: Prednisone (Prednisone) 10 Mg Tab 10 MG PO BID Start after completing the Prednisone 20 mg twice daily prescription. Cough Days 7 Ref 0 TAB Amoxicillin (Amoxicillin) 500 Mg Cap 500 MG PO BID Cough #8 CAP Budesonide-Formoterol Inh (Symbicort Inh) 160-4.5 Mcg/Act Aero 1 PUFF INH Q12HR Cough #1 INHALER Ipratropium-Albuterol Neb (Duoneb) 0.5-2.5 Mg/3 Ml Neb 1 AMPULE NEB TID NEB Cough Days 30 ML Prednisone (Prednisone) 20 Mg Tab 20 MG PO BID Cough Days 7 TAB Continued Medications: Albuterol Neb (Albuterol Neb) 1.25 Mg/3 Ml Neb 1.25 MG NEB Q4HR NEB PRN SHORTNESS OF BREATH #50 Ref 0 NEBULE Beclomethasone Inh (Qvar Inh) 40 Mcg/Act Aero 1 PUFF INH BID Asthma Management #1 Ref 0 INHALER Benzonatate (Tessalon Perles) 100 Mg Cap 100 MG PO TID PRN COUGH Ref 0 CAP Conjugated Estrogens-Medroxyprogesterone (Prempro Blister Pack) 0.3-1.5 Mg Tab 1 TAB PO DAILY Estrogen Supplements #1 Ref 0 PACK Tiotropium-Olodaterol Inh (Stiolto Respimat Inh) 2.5-2.5 Mcg/Act Aero 2 PUFF INH DAILY COPD #1 Ref 0 INHALER Anahi Hoang May 07, 2016 15:32
--- NOTE | 2016-05-13 08:37 | MD ---
cc: Ivelisse MARSHALL ADMISSION DATE: 05/04/2016 DISCHARGE DATE: 05/07/2016 HISTORY Ms. Alegre is a 75-year-old white female whom I have followed for several years with severe COPD but she has been remarkably stable. She has about 100 pack-year smoking history, quit back in the 90s. Has not been in the hospital in many years but was being treated as an outpatient for an exacerbation and simply was not getting better. She was brought into the emergency room, was noted to be hypoxic and tachypneic and was admitted. HOSPITAL COURSE She did well with aerosol treatments, a dose of corticosteroids and then the day before I put her on oral prednisone, Amoxil and Symbicort. She has done well with that. She is still hypoxic when up walking but is stable. She will be discharged home today by her primary physician. I will write her a prescription for prednisone. She has a nebulizer at home, she can use that as needed. She will resume her C02 and QVAR and complete an additional 5 days of amoxicillin. I will see her back in the office in 2 weeks. She will call if problems arise prior to that. MD HILDA Morales/PRABHU /1:23 PM /7:31 AM
== END 2016-05-07 17:29 | disposition home or self-care (01) | DRG 190 ==
LOC: NEPC 19:42 → NEDA 22:46 → NEDH 05-05 03:04 → N04A 05-05 14:13
PROVIDERS: ADMIT Family Medicine; ATTEND Family Medicine
DX: J44.0 Chronic obstructive pulmonary disease with (acute) lower respiratory infection (principal); J18.9 Pneumonia, unspecified organism; J44.1 Chronic obstructive pulmonary disease with (acute) exacerbation; R09.02 Hypoxemia; Z87.891 Personal history of nicotine dependence
CPT/HCPCS: 71010; 71020; 80048; 80053; 81001; 82550; 82552; 83605; 83690; 83735; 83880; 85007; 85025; 85027; 85610; 85730; 87040; 87070; 87205; 93005; 94620; 94640; 94664; 96374; 96375; J0456; J0696; J2930; J7050; J7512

== ENCOUNTER 2017-01-06 21:15 | Inpatient (IN) | payer MEDICARE ==
[~2017-01-06] VITALS: Ht 167.6 cm; Wt 66.7 kg
[~2017-01-06 21:15] MED LIST: ALBU1.25 NEB; AMOX500C PO; BECL0.07 INH; BENZ100 PO; IPRASOL NEB; PRED10 PO; PRED20 PO; PREM0.3T2 PO; SYMB160A INH; TIOT1AER INH
[2017-01-06 21:19] VITALS: BP 136/77; PULSE 103; RESP 22; TEMP 99.2; O2SAT 92
[2017-01-06] MEDS ORDERED: PRED20 PO (21:36)
[2017-01-06] MEDS ORDERED: methylPREDNISolone SOD SUCC 125 MG/2 ML VIAL IV PUSH ONE (21:45)
[2017-01-06] MEDS: RESP: ALBUTEROL 2.5 MG/IPRATROPIUM 0.5 MG NEB (SCH) INH ×2 (21:48→21:49)
[2017-01-06 21:52] VITALS: O2SAT 92
--- NOTE | 2017-01-06 22:07 | RADRPT ---
EXAM DATE/TIME: 01/06/2017 21:47 [facility] COMPARISON: CHEST SINGLE AP, May 04, 2016, 21:13. INDICATIONS : Short of breath. MEDICAL HISTORY : Chronic obstructive pulmonary disease. SURGICAL HISTORY : None. ENCOUNTER: Initial ACUITY: 1 day PAIN SCORE: 0/10 LOCATION: Bilateral chest FINDINGS: A single portable frontal view the chest shows a focal consolidation involving the right lung base. L eft lung is clear. No effusions. Heart is normal in size. Lungs are hyper aerated with bulla involvin g the right upper lobe. CONCLUSION: 1. Right lower lobe infiltrate. 2. Bullous emphysematous changes. Bill Alexandra Jr., MD on January 06, 2017 at 22:05 Board Certified Radiologist. This report was verified electronically.
[2017-01-06] MEDS ORDERED: AZITHROMYCIN INJ 500 MG in SODIUM CHLOR 0.9% 250 ML INJ 250 ML IV ONE (22:15)
[2017-01-06] MEDS ORDERED: cefTRIAXone INJ 1,000 MG in SODIUM CHLORIDE 0.9% INJ 100 ML IV ONE (22:15)
[2017-01-06 22:21] LABS: AUTOMATED NEUTROPHIL # 20.1 TH/MM3 (1.8-7.7); BASOPHIL # 0.1 TH/MM3 (0-0.2); BASOPHIL % 0.2 % (0.0-2.0); EOSINOPHIL # 0.1 TH/MM3 (0-0.4); EOSINOPHIL % 0.5 % (0.0-4.0); HEMATOCRIT 43.7 % (35.0-46.0); HEMO FLAGS DIFF FINAL; LYMPH % 5.6 % (9.0-44.0); LYMPHOCYTE # 1.3 TH/MM3 (1.0-4.8); MEAN CELL VOLUME 95.1 FL (80.0-100.0); MEAN CORPUSCULAR HEMOGLOBIN 31.4 PG (27.0-34.0); MONO % 8.8 % (0.0-8.0); NEUT % 84.9 % (16.0-70.0); PLATELET COUNT 295 TH/MM3 (150-450); RED BLOOD COUNT 4.59 MIL/MM3 (4.00-5.30); WHITE BLOOD COUNT 23.7 TH/MM3 (4.0-11.0)
[2017-01-06 22:27] LABS: BICARBONATE 24.5 MEQ/L (21.0-32.0); POTASSIUM 3.6 MEQ/L (3.5-5.1)
--- NOTE | 2017-01-06 22:29 | PD ---
HPI Chief Complaint: Respiratory Symptoms Time Seen by Provider: 21:34 Travel History International Travel<30 days: No Contact w/Intl Traveler<30days: No Traveled to known affect area: No History of Present Illness HPI 76-year-old female that presents to the ED for evaluation of respiratory symptoms. Patient has a history of COPD and uses oxygen at home. Patient has a history of smoking. Patient has been admitted before for COPD exacerbations. Per patient his been having back cough and congestion. Some chest discomfort with cough but mostly to the head. Per patient she has some congestion and runny nose. States having some chills and sweats. Takes no blood thinners. No history of heart disease. States that she's had this problem 10 days and is not getting better. She went to see her doctor who prescribed her prednisone. She has not improved since. She was not given antibiotics. She states compliant with her inhaler but today she went to visit her son and she did not have any of her inhalers or her nebulizers and became more short of breath. She gave herself breathing treatment when she got home she was still short of breath which is what prompted her evaluation today. Denies any abdominal pain. No nausea or vomiting. no other medical issues. PFSH Past Medical History Cancer: No Cardiovascular Problems: No Congestive Heart Failure: No COPD: Yes Coronary Artery Disease: No Diabetes: No Endocrine: No Gastrointestinal Disorders: Yes Genitourinary: No Hiatal Hernia: Yes Immune Disorder: No Musculoskeletal: Yes (r shoulder tendenitis - rotator cuff) Neurologic: No Psychiatric: No Reproductive: No Respiratory: Yes Tetanus Vaccination: < 5 Years Influenza Vaccination: Yes Past Surgical History Abdominal Surgery: Yes (appeendix) Appendectomy: Yes Other Surgery: Yes Social History Alcohol Use: No Tobacco Use: No Substance Use: No Allergies-Medications (Allergen,Severity, Reaction): Coded Allergies: codeine (Unverified Allergy, Severe, Swelling, 01/06/17) ciprofloxacin (Unverified Allergy, Intermediate, Itching, 01/06/17) levofloxacin (Verified Allergy, Unknown, 01/06/17) could not sleep awake for 40 hours Reported Meds & Prescriptions Reported Meds & Active Scripts Active Duoneb (Ipratropium-Albuterol Neb) 0.5-2.5 Mg/3 Ml Neb 1 Ampule NEB TID NEB 30 Days Symbicort Inh (Budesonide/Formoterol Fumarate) 160-4.5 Mcg/Act Aero 1 Puff INH Q12HR Reported Prednisone 20 Mg Tab 20 Mg PO DAILY Prempro Blister Pack (Estrogens Conj/Medroxyprogest Acet) 0.3-1.5 Mg Tab 1 Tab PO DAILY Tessalon Perles (Benzonatate) 100 Mg Cap 100 Mg PO TID PRN Albuterol Neb (Albuterol Sulfate) 1.25 Mg/3 Ml Neb 1.25 Mg NEB Q4HR NEB PRN Qvar Inh (Beclomethasone Dipropionate) 40 Mcg/Act Aero 1 Puff INH BID Stiolto Respimat Inh (Tiotropium-Olodaterol Inh) 2.5-2.5 Mcg/Act Aero 2 Puff INH DAILY Review of Systems Except as stated in HPI: all other systems reviewed are Neg Physical Exam Narrative GENERAL: SKIN: Warm and dry. HEAD: Atraumatic. Normocephalic. EYES: Pupils equal and round. No scleral icterus. No injection or drainage. ENT: No nasal bleeding or discharge. Mucous membranes pink and moist. Tongue is midline. No uvula deviation. NECK: Trachea midline. No JVD. CARDIOVASCULAR: Regular rate and rhythm. No murmurs, S3, S4. RESPIRATORY: No accessory muscle use. Clear to auscultation. Breath sounds equal bilaterally. GASTROINTESTINAL: Abdomen soft, non-tender, nondistended. Hepatic and splenic margins not palpable. MUSCULOSKELETAL: Extremities without clubbing, cyanosis, or edema. No obvious deformities. Full range of motion of the upper and lower extremities bilaterally. 2+ pulses bilaterally. NEUROLOGICAL: Awake and alert. No obvious cranial nerve deficits. Motor grossly within normal limits. Five out of 5 muscle strength in the arms and legs. Normal speech. PSYCHIATRIC: Appropriate mood and affect; insight and judgment normal. Data Data Last Documented VS Vital Signs Date Time Temp Pulse Resp B/P (MAP) Pulse Ox O2 Delivery O2 Flow Rate FiO2 01/06/17 21:52 92 Nasal Cannula 3.00 01/06/17 21:32 25 01/06/17 21:19 99.2 103 136/77 (96) Orders Orders Electrocardiogram (01/06/17 21:40) Basic Metabolic Panel (Bmp) (01/06/17 21:40) Complete Blood Count With Diff (01/06/17 21:40) Chest, Single Ap (01/06/17 21:40) Ecg Monitoring (01/06/17 21:40) Iv Access Insert/Monitor (01/06/17 21:40) Oximetry (01/06/17 21:40) Oxygen Administration (01/06/17 21:40) Methylprednisolone So Succ Inj (Solumedr (01/06/17 21:45) Albuterol-Ipratropium Neb (Duoneb Neb) (01/06/17 21:45) D-Dimer (01/06/17 21:47) Ceftriaxone Inj (Rocephin Inj) (01/06/17 22:15) Azithromycin Inj (Zithromax Inj) (01/06/17 22:15) Ct Pulmonary Angiogram (01/06/17 ) Labs Laboratory Tests Test 01/06/17 21:53 White Blood Count 23.7 TH/MM3 Red Blood Count 4.59 MIL/MM3 Hemoglobin 14.4 GM/DL Hematocrit 43.7 % Mean Corpuscular Volume 95.1 FL Mean Corpuscular Hemoglobin 31.4 PG Mean Corpuscular Hemoglobin Concent 33.0 % Red Cell Distribution Width 13.0 % Platelet Count 295 TH/MM3 Mean Platelet Volume 8.3 FL Neutrophils (%) (Auto) 84.9 % Lymphocytes (%) (Auto) 5.6 % Monocytes (%) (Auto) 8.8 % Eosinophils (%) (Auto) 0.5 % Basophils (%) (Auto) 0.2 % Neutrophils # (Auto) 20.1 TH/MM3 Lymphocytes # (Auto) 1.3 TH/MM3 Monocytes # (Auto) 2.1 TH/MM3 Eosinophils # (Auto) 0.1 TH/MM3 Basophils # (Auto) 0.1 TH/MM3 CBC Comment DIFF FINAL Differential Comment D-Dimer Quantitative (PE/DVT) 0.71 MG/L FEU Blood Urea Nitrogen 18 MG/DL Creatinine 0.81 MG/DL Random Glucose 120 MG/DL Calcium Level 9.0 MG/DL Sodium Level 138 MEQ/L Potassium Level 3.6 MEQ/L Chloride Level 104 MEQ/L Carbon Dioxide Level 24.5 MEQ/L Anion Gap 10 MEQ/L Estimat Glomerular Filtration Rate 69 ML/MIN MDM Medical Decision Making Medical Screen Exam Complete: Yes Emergency Medical Condition: Yes Medical Record Reviewed: Yes Interpretation(s) Last Impressions Chest X-Ray 01/06/172139 Signed Impressions: Service Date/Time: December 21:47 - CONCLUSION: 1. Right lower lobe infiltrate. 2. Bullous emphysematous changes. Bill Alexandra Jr., MD CBC Diagram 01/06/17 21:53 Differential Diagnosis Pneumonia versus COPD exacerbation versus COPD versus congestion versus URI versus less likely but still possible PE Narrative Course 76-year-old female that presents to the ED for evaluation of cold-like symptoms. Patient was properly examined and was found to have signs and symptoms consistent with appears to be superficial laceration on was able pneumonia. She is somewhat tachycardic on exam and hypoxic even with oxygen. D -dimer was added to her blood work to rule out any sign of PE. Labs and imaging were ordered. Labs and imaging showed possible pneumonia. D-dimer also elevated. This time I cannot completely rule out PE so CT pulmonary diagram was ordered. Case was signed out to my attending pending admission for pneumonia or PE or both. Diagnosis Primary Impression: COPD exacerbation Additional Impression: Pneumonia Qualified Codes: J18.1 - Lobar pneumonia, unspecified organism Nolan Ferrer Jan 06, 2017 22:29
[2017-01-06 22:57] VITALS: O2SAT 98
[2017-01-06] MEDS ORDERED: IOHEXOL 350 MG/ML 10 ML VIAL (for RAD DIAG) IVCONTRAST ONE (23:31)
--- NOTE | 2017-01-06 23:49 | RADRPT ---
EXAM DATE/TIME: 01/06/2017 23:28 [facility] COMPARISON: No previous studies available for comparison. INDICATIONS : Short of breath, Evaluate for pulmonary emoblism IV CONTRAST: 69 cc Omnipaque 350 (iohexol) IV RADIATION DOSE: 23.05 CTDIvol (mGy) MEDICAL HISTORY : Chronic obstructive pulmonary disease. Hernia, hiatal. SURGICAL HISTORY : None. ENCOUNTER: Initial ACUITY: 1 day PAIN SCALE: 3/10 LOCATION: chest TECHNIQUE: Volumetric scanning of the chest was performed using a pulmonary embolism protocol MIP images were re constructed. Using automated exposure control and adjustment of the mA and/or kV according to patien t size, radiation dose was kept as low as reasonably achievable to obtain optimal diagnostic quality images. DICOM format image data is available electronically for review and comparison. Follow-up recommendations for detected pulmonary nodules are based at a minimum on nodule size and pa tient risk factors according to Fleischner Society Guidelines. FINDINGS: Examination of the pulmonary vasculature demonstrates good filling of the main, lobar and segmental b ranches. There are no filling defects to suggest pulmonary embolism. Multiplanar reconstructions are also unremarkable. There is diffuse panlobular emphysema and paraseptal emphysema. There is right lower lobe collapse. C entrally obstructing lesion is not excluded. No pleural effusions are identified. Examination of the mediastinum demonstrates no abnormally enlarged lymph nodes by CT criteria. No axi llary or hilar abnormalities are identified. Coronary artery calcifications are present. There is hyp odensity within the liver compatible with cyst measuring 2 cm in segment 4. CONCLUSION: 1. No evidence of pulmonary embolism. 2. Right lower lobe collapse. Centrally obstructing lesion is not excluded. Bronchoscopy could be per formed for further evaluation if clinically indicated. 3. Severe emphysema Rolando Robles MD on January 06, 2017 at 23:43 Board Certified Radiologist. This report was verified electronically.
[2017-01-07] VITALS (9 sets, daily range): BP systolic 105–142; BP diastolic 60–79; PULSE 78–98; RESP 17–28; TEMP 96.1–98.7; O2SAT 93–96
--- NOTE | 2017-01-07 00:37 | PD ---
Physical Exam Narrative Patient was seen by me and my clinical trial assistant. Data Data Last Documented VS Vital Signs Date Time Temp Pulse Resp B/P (MAP) Pulse Ox O2 Delivery O2 Flow Rate FiO2 01/06/17 22:57 98 Nasal Cannula 3.00 01/06/17 21:32 25 01/06/17 21:19 99.2 103 Orders Orders Electrocardiogram (01/06/17 21:40) Basic Metabolic Panel (Bmp) (01/06/17 21:40) Complete Blood Count With Diff (01/06/17 21:40) Chest, Single Ap (01/06/17 21:40) Ecg Monitoring (01/06/17 21:40) Iv Access Insert/Monitor (01/06/17 21:40) Oximetry (01/06/17 21:40) Oxygen Administration (01/06/17 21:40) Methylprednisolone So Succ Inj (Solumedr (01/06/17 21:45) Albuterol-Ipratropium Neb (Duoneb Neb) (01/06/17 21:45) D-Dimer (01/06/17 21:47) Ceftriaxone Inj (Rocephin Inj) (01/06/17 22:15) Azithromycin Inj (Zithromax Inj) (01/06/17 22:15) Ct Pulmonary Angiogram (01/06/17 ) Iohexol 350 Inj (Omnipaque 350 Inj) (01/06/17 23:31) Labs Laboratory Tests Test 01/06/17 21:53 White Blood Count 23.7 TH/MM3 Red Blood Count 4.59 MIL/MM3 Hemoglobin 14.4 GM/DL Hematocrit 43.7 % Mean Corpuscular Volume 95.1 FL Mean Corpuscular Hemoglobin 31.4 PG Mean Corpuscular Hemoglobin Concent 33.0 % Red Cell Distribution Width 13.0 % Platelet Count 295 TH/MM3 Mean Platelet Volume 8.3 FL Neutrophils (%) (Auto) 84.9 % Lymphocytes (%) (Auto) 5.6 % Monocytes (%) (Auto) 8.8 % Eosinophils (%) (Auto) 0.5 % Basophils (%) (Auto) 0.2 % Neutrophils # (Auto) 20.1 TH/MM3 Lymphocytes # (Auto) 1.3 TH/MM3 Monocytes # (Auto) 2.1 TH/MM3 Eosinophils # (Auto) 0.1 TH/MM3 Basophils # (Auto) 0.1 TH/MM3 CBC Comment DIFF FINAL Differential Comment D-Dimer Quantitative (PE/DVT) 0.71 MG/L FEU Blood Urea Nitrogen 18 MG/DL Creatinine 0.81 MG/DL Random Glucose 120 MG/DL Calcium Level 9.0 MG/DL Sodium Level 138 MEQ/L Potassium Level 3.6 MEQ/L Chloride Level 104 MEQ/L Carbon Dioxide Level 24.5 MEQ/L Anion Gap 10 MEQ/L Estimat Glomerular Filtration Rate 69 ML/MIN [facility] Supervised Visit with JAIRON: Yes Interpretation(s) Last Impressions Chest X-Ray 01/06/17 2140 Signed Impressions: Service Date/Time: , January 06, 2017 21:47 - CONCLUSION: 1. Right lower lobe infiltrate. 2. Bullous emphysematous changes. Bill Alexandra Jr., MD CT Angiography 01/06/17 0000 Signed Impressions: Service Date/Time: , January 06, 2017 23:28 - CONCLUSION: 1. No evidence of pulmonary embolism. 2. Right lower lobe collapse. Centrally obstructing lesion is not excluded. Bronchoscopy could be performed for further evaluation if clinically indicated. 3. Severe emphysema Rolando Robles MD Narrative Course Patient was given DuoNeb treatment, Solu-Medrol IV, Rocephin IV and Zithromax IV. Diagnosis Primary Impression: Pneumonia Qualified Codes: J18.1 - Lobar pneumonia, unspecified organism Additional Impression: COPD with acute exacerbation Admitting Information Admitting Physician Requests: Admit Tapan Farias MD Jan 07, 2017 00:37
[2017-01-07] MEDS ORDERED: LACTULOSE SYRUP 20 GM/30 ML CUP PO PRN (01:00)
[2017-01-07] MEDS ORDERED: SODIUM CHLORIDE 0.9% FLUSH 10 ML FLUSH IV FLUSH PRN (01:00)
[2017-01-07] MEDS ORDERED: ONDANSETRON HCL 4 MG/2 ML VIAL IVP PRN (01:00)
[2017-01-07] MEDS ORDERED: SENNOSIDES 8.6 MG TAB PO PRN (01:00)
[2017-01-07] MEDS ORDERED: ACETAMINOPHEN/HYDROcodone 325 MG/5 MG TAB PO PRN (01:00)
[2017-01-07] MEDS ORDERED: BISACODYL 10 MG SUPP RECTAL PRN (01:00)
[2017-01-07] MEDS ORDERED: ACETAMINOPHEN 325 MG TAB PO PRN (01:00)
[2017-01-07] MEDS ORDERED: NALOXONE HCL 0.4 MG/ML AMP IV PUSH PRN (01:00)
[2017-01-07] MEDS ORDERED: MORPHINE SULFATE 4 MG/ML INJ IV PUSH PRN (01:00)
[2017-01-07] MEDS ORDERED: ACETAMINOPHEN/HYDROcodone 325 MG/7.5 MG TAB PO PRN (01:00)
[2017-01-07] MEDS ORDERED: ZOLPIDEM TARTRATE 5 MG TAB PO PRN ×2 (01:00→08:45)
[2017-01-07] MEDS: ENOXAPARIN SODIUM 40 MG/0.4 ML SYRINGE SQ SCH (01:45)
[2017-01-07] MEDS: SODIUM CHLOR 0.9% 1000 ML INJ 1,000 ML IV SCH ×3 (01:45→20:58)
[2017-01-07] MEDS: BENZONATATE 100 MG CAP PO PRN ×2 (02:00→10:07)
[2017-01-07] MEDS: RESP: ALBUTEROL 2.5 MG/IPRATROPIUM 0.5 MG NEB (SCH) NEB ×3 (08:24→21:11)
--- NOTE | 2017-01-07 08:33 | HHI.HP ---
History of Present Illness Service Medical Primary Care Physician Luis Alberto Campos, DO Admission Diagnosis pneumonia. Acute exacerbation COPD. Diagnoses: (1) Pneumonia (2) COPD with acute exacerbation History of Present Illness 76-year-old female that presents to the ED for evaluation of respiratory symptoms. Patient has a history of COPD and uses oxygen at home. Patient has a history of smoking quit over 20 years ago States that she's had this problem 10 days and is not getting better. She went to see her doctor who prescribed her prednisone. She has not improved since. She was not given antibiotics. She states compliant with her inhaler but today she went to visit her son and she did not have any of her inhalers or her nebulizers and became more short of breath. She gave herself breathing treatment when she got home she was still short of breath which is what prompted her evaluation today. Denies any abdominal pain. No nausea or vomiting. Review of Systems Constitutional: COMPLAINS OF: Fatigue Ears, nose, mouth, throat: COMPLAINS OF: Running Nose Respiratory: COMPLAINS OF: Cough, Sputum production, Shortness of breath Cardiovascular: DENIES: Chest pain, Palpitations, Lower Extremity Edema Gastrointestinal: DENIES: Abdominal pain, Constipation, Diarrhea Neurologic: DENIES: Headache Psychiatric: DENIES: Anxiety, Confusion, Depression Past Family Social History Allergies: Coded Allergies: codeine (Unverified Allergy, Severe, Swelling, 01/06/17) ciprofloxacin (Unverified Allergy, Intermediate, Itching, 01/06/17) levofloxacin (Verified Allergy, Unknown, 01/06/17) could not sleep awake for 40 hours Past Medical History COPD right shoulder tendentious Herpes Past Surgical History Appendectomy Active Ordered Medications Current Medications Medications (Trade) Dose Ordered Sig/Tigist Route Start Time Stop Time Status Last Admin Sodium Chloride 1,000 ml @ 100 mls/hr Q10H IV 01/07/17 00:58 01/07/17 01:45 (NS Flush) 2 ml UNSCH PRN IV FLUSH 01/07/17 01:00 (NS Flush) 2 ml BID IV FLUSH 01/07/17 09:00 (Tylenol) 650 mg Q4H PRN PO 01/07/17 01:00 (Zofran Inj) 4 mg Q6H PRN IVP 01/07/17 01:00 (Ambien) 5 mg HS PRN PO 01/07/17 01:00 (Lovenox Inj) 40 mg Q24H SQ 01/07/17 01:00 01/07/17 01:45 (Tylenol) 650 mg Q6H PRN PO 01/07/17 01:00 (Cleveland 5-325 Mg) 1 tab Q4H PRN PO 01/07/17 01:00 ([place] 7.5-325 Mg) 1 tab Q4H PRN PO 01/07/17 01:00 (Morphine Inj) 4 mg Q3H PRN IV PUSH 01/07/17 01:00 (Narcan Inj) 0.4 mg UNSCH PRN IV PUSH 01/07/17 01:00 (Mila-Colace) 1 tab BID PO 01/07/17 09:00 (Senokot) 17.2 mg Q12H PRN PO 01/07/17 01:00 (Dulcolax Supp) 10 mg DAILY PRN RECTAL 01/07/17 01:00 (Lactulose Liq) 30 ml DAILY PRN PO 01/07/17 01:00 (Albuterol Neb) 1.25 mg Q4HR NEB PRN NEB 01/07/17 01:00 (Qvar 40 Mcg Inh) 1 puff BID INH 01/07/17 09:00 (Tessalon) 100 mg TID PRN PO 01/07/17 01:00 01/07/17 02:00 (Symbicort 160-4.5 Inh) 1 puff Q12HR INH 01/07/17 09:00 (Duoneb Neb) 1 ampule TID NEB NEB 01/07/17 08:00 (Deltasone) 20 mg DAILY PO 01/07/17 09:00 Non-Formulary Medication 1 tab DAILY PO 01/07/17 09:00 UNV Patient Own Medication PT OWN MED: TIOTROPIUM 2.5M... DAILY INH 01/07/17 09:00 Future Hold Family History Both Social History Quit smoking 21 years ago Seldom uses alcohol Lives alone Works at [employer]. Physical Exam Vital Signs Vital Signs Date Time Temp Pulse Resp B/P (MAP) Pulse Ox O2 Delivery O2 Flow Rate FiO2 01/07/17 03:52 98.3 78 17 131/76 (94) 94 01/07/17 02:00 98.7 86 18 142/71 (94) 93 01/07/17 00:41 98 18 105/60 (75) 94 Room Air 01/06/17 22:57 98 Nasal Cannula 3.00 01/06/17 22:57 98 Nasal Cannula 3.00 01/06/17 21:52 92 Nasal Cannula 3.00 01/06/17 21:32 25 Nasal Cannula 3.00 01/06/17 21:19 99.2 103 22 136/77 (96) 92 Nasal Cannula 3.00 Physical Exam GENERAL: Alert and oriented SKIN: Warm and dry. HEAD: Atraumatic. Normocephalic. EYES: Pupils equal and round. No scleral icterus. No injection or drainage. . CARDIOVASCULAR: Regular rate and rhythm. No murmurs, S3, S4. RESPIRATORY: No accessory muscle use. Clear to auscultation. Breath sounds equal bilaterally. GASTROINTESTINAL: Abdomen soft, non-tender, nondistended. Hepatic and splenic margins not palpable. MUSCULOSKELETAL: Extremities without clubbing, cyanosis, or edema. No obvious deformities. Full range of motion of the upper and lower extremities bilaterally. 2+ pulses bilaterally. NEUROLOGICAL: Awake and alert. Normal speech. PSYCHIATRIC: Appropriate mood and affect; insight and judgment normal. Laboratory Laboratory Tests Test 01/06/17 21:53 White Blood Count 23.7 Red Blood Count 4.59 Hemoglobin 14.4 Hematocrit 43.7 Mean Corpuscular Volume 95.1 Mean Corpuscular Hemoglobin 31.4 Mean Corpuscular Hemoglobin Concent 33.0 Red Cell Distribution Width 13.0 Platelet Count 295 Mean Platelet Volume 8.3 Neutrophils (%) (Auto) 84.9 Lymphocytes (%) (Auto) 5.6 Monocytes (%) (Auto) 8.8 Eosinophils (%) (Auto) 0.5 Basophils (%) (Auto) 0.2 Neutrophils # (Auto) 20.1 Lymphocytes # (Auto) 1.3 Monocytes # (Auto) 2.1 Eosinophils # (Auto) 0.1 Basophils # (Auto) 0.1 CBC Comment DIFF FINAL Differential Comment D-Dimer Quantitative (PE/DVT) 0.71 Blood Urea Nitrogen 18 Creatinine 0.81 Random Glucose 120 Calcium Level 9.0 Sodium Level 138 Potassium Level 3.6 Chloride Level 104 Carbon Dioxide Level 24.5 Anion Gap 10 Estimat Glomerular Filtration Rate 69 Result Diagram: 01/06/17215201/06/172152 Imaging Current Medications Medications (Trade) Dose Ordered Sig/Tigist Route Start Time Stop Time Status Last Admin Sodium Chloride 1,000 ml @ 100 mls/hr Q10H IV 01/07/17 00:58 01/07/17 01:45 (NS Flush) 2 ml UNSCH PRN IV FLUSH 01/07/17 01:00 (NS Flush) 2 ml BID IV FLUSH 01/07/17 09:00 (Tylenol) 650 mg Q4H PRN PO 01/07/17 01:00 (Zofran Inj) 4 mg Q6H PRN IVP 01/07/17 01:00 (Ambien) 5 mg HS PRN PO 01/07/17 01:00 (Lovenox Inj) 40 mg Q24H SQ 01/07/17 01:00 01/07/17 01:45 (Tylenol) 650 mg Q6H PRN PO 01/07/17 01:00 (Cleveland 5-325 Mg) 1 tab Q4H PRN PO 01/07/17 01:00 (Cleveland 7.5-325 Mg) 1 tab Q4H PRN PO 01/07/17 01:00 (Morphine Inj) 4 mg Q3H PRN IV PUSH 01/07/17 01:00 (Narcan Inj) 0.4 mg UNSCH PRN IV PUSH 01/07/17 01:00 (Mila-Colace) 1 tab BID PO 01/07/17 09:00 (Senokot) 17.2 mg Q12H PRN PO 01/07/17 01:00 (Dulcolax Supp) 10 mg DAILY PRN RECTAL 01/07/17 01:00 (Lactulose Liq) 30 ml DAILY PRN PO 01/07/17 01:00 (Albuterol Neb) 1.25 mg Q4HR NEB PRN NEB 01/07/17 01:00 (Qvar 40 Mcg Inh) 1 puff BID INH 01/07/17 09:00 (Tessalon) 100 mg TID PRN PO 01/07/17 01:00 01/07/17 02:00 (Symbicort 160-4.5 Inh) 1 puff Q12HR INH 01/07/17 09:00 (Duoneb Neb) 1 ampule TID NEB NEB 01/07/17 08:00 (Deltasone) 20 mg DAILY PO 01/07/17 09:00 Non-Formulary Medication 1 tab DAILY PO 01/07/17 09:00 UNV Patient Own Medication PT OWN MED: TIOTROPIUM 2.5M... DAILY INH 01/07/17 09:00 Future Hold Caprini VTE Risk Assessment Caprini VTE Risk Assessment: Mod/High Risk (score >= 2) Caprini Risk Assessment Model Point Value = 1 Point Value = 2 Point Value = 3 Point Value = 5 Age 41-60 Minor surgery BMI > 25 kg/m2 Swollen legs Varicose veins or History of unexplained or recurrent spontaneous Oral contraceptives or hormone replacement Sepsis (< 1 month) Serious lung disease, including pneumonia (< 1 month) Abnormal pulmonary function Acute myocardial infarction Congestive heart failure (< 1 month) History of inflammatory bowel disease Medical patient at bed rest Age 61-74 Arthroscopic surgery Major open surgery (> 45 min) Laparoscopic surgery (> 45 min) Malignancy Confined to bed (> 72 hours) Immobilizing plaster cast Central venous access Age >= 75 History of VTE Family history of VTE Factor V Leiden Prothrombin [id number] Lupus anticoagulant Anticardiolipin antibodies Elevated serum homocysteine Heparin-induced thrombocytopenia Other congenital or acquired thrombophilia Stroke (< 1 month) Elective arthroplasty Hip, pelvis, or leg fracture Acute spinal cord injury (< 1 month) Prophylaxis Regimen Total Risk Factor Score Risk Level Prophylaxis Regimen 0-1 Low Early ambulation 2 Moderate Order ONE of the following: *Sequential Compression Device (SCD) *Heparin 5000 units SQ BID 3-4 Higher Order ONE of the following medications: *Heparin 5000 units SQ TID *Enoxaparin/Lovenox 40 mg SQ daily (WT < 150 kg, CrCl > 30 mL/min) *Enoxaparin/Lovenox 30 mg SQ daily (WT < 150 kg, CrCl > 10-29 mL/min) *Enoxaparin/Lovenox 30 mg SQ BID (WT < 150 kg, CrCl > 30 mL/min) AND/OR *Sequential Compression Device (SCD) 5 or more Highest Order ONE of the following medications: *Heparin 5000 units SQ TID (Preferred with Epidurals) *Enoxaparin/Lovenox 40 mg SQ daily (WT < 150 kg, CrCl > 30 mL/min) *Enoxaparin/Lovenox 30 mg SQ daily (WT < 150 kg, CrCl > 10-29 mL/min) *Enoxaparin/Lovenox 30 mg SQ BID (WT < 150 kg, CrCl > 30 mL/min) AND *Sequential Compression Device (SCD) Assessment and Plan Problem List: (1) Herpes ICD Codes: B00.9 - Herpesviral infection, unspecified (2) Pneumonia ICD Codes: J18.9 - Pneumonia, unspecified organism Status: Acute (3) COPD with acute exacerbation ICD Codes: J44.1 - Chronic obstructive pulmonary disease with (acute) exacerbation Status: Acute (4) Cough ICD Codes: R05 - Cough Status: Acute Assessment and Plan 01/07/17 Pneumonia: Pulmonary consulted pending. Chest Xray with right lower lobe infiltrate and bullous emphysematous changes. On antibiotics, steroids, and breathing treatment. Having difficulty sleeping will order PRN Herpes: Patient requesting that home dose of acyclovir be resumed. Ordered GI and DVT prophylaxis ordered I and the CHIEF RADIOLOGY have both examined this patient and reviewed this note and I agree with these findings and plan of care. Luis Alberto Campos DO Problem Qualifiers (1) Pneumonia: Qualified Codes: J18.1 - Lobar pneumonia, unspecified organism Rosemary Barkley CHIEF RADIOLOGY Jan 07, 2017 08:33
[2017-01-07] MEDS ORDERED: CONJUGATED ESTROGENS PO SCH (09:00)
[2017-01-07] MEDS ORDERED: MEDROXYPROGESTERONE PO SCH (09:00)
[2017-01-07] MEDS ORDERED: [UNRECOGNIZED DRUG - OTHER] INH SCH (09:00)
[2017-01-07] MEDS ORDERED: predniSONE 20 MG TAB PO SCH (09:00)
[2017-01-07] MEDS: SODIUM CHLORIDE 0.9% FLUSH 10 ML FLUSH IV FLUSH SCH ×2 (09:00→19:56)
[2017-01-07] MEDS ORDERED: BUDESONIDE-FORMOTEROL 160/4.5 MCG INHALER INH SCH (09:00)
[2017-01-07] MEDS ORDERED: TIOTROPIUM INH SCH (09:00)
[2017-01-07] MEDS: BECLOMETHASONE DIPROPIONATE 40 MCG/ACT 8.7 GM INHALER INH SCH ×2 (10:06→19:56)
[2017-01-07] MEDS: DOCUSATE SODIUM 50 MG/SENNA 8.6 MG TAB PO SCH ×2 (10:07→19:55)
[2017-01-07] MEDS: FAMOTIDINE 20 MG TAB PO SCH ×2 (10:07→19:55)
[2017-01-07] MEDS: ACYCLOVIR 200 MG CAP PO SCH ×2 (11:29→19:56)
[2017-01-07] MEDS: guaiFENesin E.R. 600 MG TAB PO SCH ×2 (13:43→19:56)
[2017-01-07] MEDS ORDERED: BENZONATATE 100 MG CAP PO PRN (13:45)
--- NOTE | 2017-01-07 15:16 | MB ---
cc: Ivelisse MARSHALL M.D. DATE OF CONSULTATION: 01/07/2017. HISTORY OF PRESENT ILLNESS: Miss Alegre is a 76-year-old white female known to me with COPD for about three years. She was hospitalized here in April for an acute exacerbation and chest x-ray at that time revealed minimal basilar changes. Pulmonary functions in the range of 40-50%. I had seen her several months ago at which time things were stable but over the course of the last two weeks she has had a persistent cough generally nonproductive and received some oral prednisone for that thinking that it was a mild inflammatory response but her breathing became more labored, the cough was persistent, she just did not feel well so she came to the emergency room and a chest x-ray revealed a new right lower lobe infiltrate. She also had a white count of 23,000 with a left shift. CT scan was done which reveals an extensive right lower lobe posterior segment infiltrate superimposed on severe bullous emphysema. At the time of this interview, the patient is awake, alert, actually quite comfortable at rest and says she feels a little better not particularly short of breath. She has had no chest pain or hemoptysis. No significant purulent sputum. She has not been aware of fever. She has had no sweats. O2 sat has been running in the mid 90s on 3 liters. She does have oxygen at home. She has had no unusual exposures recently or extensive travel outside the area. PAST MEDICAL HISTORY: No prior cardiovascular history. No history of malignancy. She has had a prior appendectomy. No other major surgeries. SOCIAL HISTORY: Former smoker of about 50 pack-years, quit several years ago. No history of alcohol abuse. , lives alone, manages her own affairs. FAMILY HISTORY: Father of COPD. Mother had thyroid disease and history of previous strokes. She has children, three in good health. MEDICATIONS: Current medications reviewed in the EMR. ALLERGIES: 1. CIPRO. 2. CODEINE. 3. LEVAQUIN. PHYSICAL EXAMINATION: VITAL SIGNS: 97 degrees, 120/80, respirations 22, pulse 90 and regular, 93% on three liters. HEAD, EYES, EARS, NOSE, THROAT: The sclerae are nonicteric. The mucous membranes are moist. NECK: The neck veins are flat. CHEST: Scattered congestion, particularly at the right base. Some minimal scattered wheezing. HEART: Regular rhythm. No harsh murmur. ABDOMEN: Soft. EXTREMITIES: No peripheral edema or calf tenderness. LABS: Electrolytes are normal. DISCUSSION Ms. Alegre presents with a new right lower lobe infiltrate, significant consolidation and clinical history consistent with pneumonia and significant underlying COPD / emphysema. The location is a little suspicious for an aspiration so I am going to switch her from Rocephin to Zosyn and continue the Zithromax, obtain cultures of her sputum, nasal aspirate for influenza A and Legionella and Pneumococcal antigens in the urine. I am also going to check her nasal aspirate for MRSA. We will continue oral prednisone since she seems stable from a COPD standpoint and oxygen and nebulized aerosol treatments. Further diagnostic and/or therapeutic intervention will depend on her ongoing clinical course. R. MD HILDA Montoya/MAIK /3:04 PM /3:12 PM
[2017-01-07] MEDS: PIPERACIL-TAZO 3.375 GM PREMIX 50 ML IV SCH (17:47)
--- NOTE | 2017-01-07 18:08 | EKG ---
Date Performed: 01/06/2017 Time Performed: 23:05:11 PTAGE: 76 years EKG: SINUS TACHYCARDIA WITH SHORT WI INTERVAL MINIMAL ST DEPRESSION ABNORMAL RHYTHM ECG PREVIOUS TRACING : 05/04/2016 20.44 DOCTOR: Rosana Arellano Interpretating Date/Time 01/07/2017 18:06:52
[2017-01-07] MEDS: predniSONE 20 MG TAB PO SCH (19:55)
[2017-01-07] MEDS: LACTOBACILLUS ACIDOPHILUS TAB PO SCH (19:55)
[2017-01-07] MEDS: AZITHROMYCIN INJ 500 MG in SODIUM CHLOR 0.9% 250 ML INJ 250 ML IV SCH (22:30)
[2017-01-07] MEDS ORDERED: cefTRIAXone INJ 1,000 MG in SODIUM CHLORIDE 0.9% INJ 100 ML IV SCH (23:00)
[2017-01-08] VITALS (7 sets, daily range): BP systolic 101–130; BP diastolic 59–86; PULSE 75–112; RESP 18–20; TEMP 96.5–97.5; O2SAT 93–96
[2017-01-08] MEDS: PIPERACIL-TAZO 3.375 GM PREMIX 50 ML IV SCH ×3 (01:14→17:05)
[2017-01-08] MEDS: ENOXAPARIN SODIUM 40 MG/0.4 ML SYRINGE SQ SCH (01:14)
[2017-01-08 05:46] LABS: ALKALINE PHOSPHATASE 98 U/L (45-117); ALT (GPT) 36 U/L (10-53); ANION GAP 8 MEQ/L (5-15); AST (GOT) 34 U/L (15-37); BLOOD UREA NITROGEN 15 MG/DL (7-18); CHLORIDE 107 MEQ/L (98-107); GLOMERULAR FILTRATION RATE 72 ML/MIN (>89); POTASSIUM 4.4 MEQ/L (3.5-5.1); SODIUM (NA) 141 MEQ/L (136-145); TOTAL BILIRUBIN ADULT 0.2 MG/DL (0.2-1.0)
[2017-01-08 05:52] LABS: AUTOMATED NEUTROPHIL # 22.8 TH/MM3 (1.8-7.7); BASOPHIL % 0.1 % (0.0-2.0); HEMATOCRIT 37.3 % (35.0-46.0); LYMPH % 6.2 % (9.0-44.0); LYMPHOCYTE # 1.6 TH/MM3 (1.0-4.8); MEAN CORPUSCULAR HGB CONC 34.3 % (32.0-36.0); MONO % 4.8 % (0.0-8.0); NEUT % 88.9 % (16.0-70.0); PLATELET COUNT 269 TH/MM3 (150-450); RED BLOOD COUNT 3.88 MIL/MM3 (4.00-5.30); RED CELL DISTRIBUTION WIDTH 13.1 % (11.6-17.2); WHITE BLOOD COUNT 25.6 TH/MM3 (4.0-11.0)
[2017-01-08] MEDS: SODIUM CHLOR 0.9% 1000 ML INJ 1,000 ML IV SCH ×2 (06:29→16:58)
[2017-01-08 06:44] LABS: HEMO FLAGS AUTO DIFF
[2017-01-08 08:54] LABS: BANDS 10 % (0-6); POLYS (SEG NEUTROPHILS) 72 % (16-70); WBC DIFF SAMPLE 100
[2017-01-08 08:55] LABS: PLATELET ESTIMATE SMEAR NORMAL (NORMAL); PLATELET MORPHOLOGY NORMAL (NORMAL); SCAN/DIFF FINAL DIFF MANUAL
--- NOTE | 2017-01-08 09:15 | HHI.PR ---
Subjective Remarks breathing a bit better Objective Last Impressions Chest X-Ray 01/06/172139 Signed Impressions: Service Date/Time: December 21:47 - CONCLUSION: 1. Right lower lobe infiltrate. 2. Bullous emphysematous changes. Bill Alexandra Jr., MD CT Angiography 01/06/17 0000 Signed Impressions: Service Date/Time: December 23:28 - CONCLUSION: 1. No evidence of pulmonary embolism. 2. Right lower lobe collapse. Centrally obstructing lesion is not excluded. Bronchoscopy could be performed for further evaluation if clinically indicated. 3. Severe emphysema Rolando Robles MD Vital Signs Date Time Temp Pulse Resp B/P (MAP) Pulse Ox O2 Delivery O2 Flow Rate FiO2 01/08/17 00:00 96.5 85 18 101/60 (74) 95 01/07/17 21:12 94 Nasal Cannula 3.00 01/07/17 20:11 96.1 84 18 106/69 (81) 94 01/07/17 14:49 97.7 91 28 124/79 (94) 93 01/07/17 12:00 97.6 88 22 106/65 (79) 93 I/O 01/07/17 01/07/17 01/07/17 01/08/17 01/08/17 01/08/17 07:00 15:00 23:00 07:00 15:00 23:00 Intake Total 830 ml Output Total 300 ml Balance 830 ml -300 ml Intake Oral 480 ml IV Total 350 ml Output Urine Total 300 ml # Voids 1 3 # Bowel Movements 0 Result Diagram: 01/08/17 0424 01/08/17 0424 Imaging Last Impressions Chest X-Ray 01/06/172139 Signed Impressions: Service Date/Time: December 21:47 - CONCLUSION: 1. Right lower lobe infiltrate. 2. Bullous emphysematous changes. Bill Alexandra Jr., MD CT Angiography 01/06/17 0000 Signed Impressions: Service Date/Time: December 23:28 - CONCLUSION: 1. No evidence of pulmonary embolism. 2. Right lower lobe collapse. Centrally obstructing lesion is not excluded. Bronchoscopy could be performed for further evaluation if clinically indicated. 3. Severe emphysema Rolando Robles MD Objective Remarks GENERAL: Well-nourished, well-developed patient. SKIN: Warm and dry. HEAD: Normocephalic. EYES: No scleral icterus. No injection or drainage. NECK: Supple, trachea midline. No JVD or lymphadenopathy. CARDIOVASCULAR: Regular rate and rhythm without murmurs, gallops, or rubs. RESPIRATORY: Breath sounds diminished RLL with rhonchi and rales GASTROINTESTINAL: Abdomen soft, non-tender, nondistended. EXTREMITIES: No cyanosis, or edema. NEUROLOGICAL: Awake, alert, and oriented x 3. Non-focal. Medications and IVs Inpatient Medications Acetaminophen (Tylenol) 650 mg Q6H PRN PO PAIN SCALE 1 TO 2; Start 01/07/17 at 01:00 Acetaminophen/ Hydrocodone Bitart (Glendo 5-325 Mg) 1 tab Q4H PRN PO PAIN SCALE 3 TO 5; Start 01/07/17 at 01:00 Acetaminophen/ Hydrocodone Bitart (Glendo 7.5-325 Mg) 1 tab Q4H PRN PO PAIN SCALE 6 TO 10; Start 01/07/17 at 01:00 Acyclovir (Zovirax) 400 mg Q12HR PO Last administered on 01/07/17 19:56; Start 01/07/17 at 10:00 Albuterol Sulfate (Albuterol Neb) 1.25 mg Q4HR NEB PRN NEB SHORTNESS OF BREATH ; Start 01/07/17 at 01:00 Albuterol/ Ipratropium (Duoneb Neb) 1 ampule TID NEB NEB Last administered on 01/07/17 21:11; Start 01/07/17 at 08:00 Azithromycin 500 mg/Sodium Chloride 250 ml @ 250 mls/hr Q24H IV Last administered on 01/07/17 22:30; Start 01/07/17 at 22:00 Beclomethasone Dipropionate (Qvar 40 Mcg Inh) 1 puff BID INH Last administered on 01/07/17 19:56; Start 01/07/17 at 09:00 Benzonatate (Tessalon) 200 mg TID PRN PO COUGH Last administered on 01/07/17 22:27; Start 01/07/17 at 13:45 Bisacodyl (Dulcolax Supp) 10 mg DAILY PRN RECTAL SEVERE CONSITIPATION; Start 01/07/17 at 01:00 Budesonide/ Formoterol Fumarate (Symbicort 160-4.5 Inh) 1 puff Q12HR INH Last administered on 01/07/17 10:06; Start 01/07/17 at 09:00; Stop 01/07/17 at 14 :56; Status DC Ceftriaxone Sodium 1000 mg/ Sodium Chloride 100 ml @ 200 mls/hr Q24H IV ; Start 01/07/17 at 23:00; Stop 01/07/17 at 23:00; Status DC Enoxaparin Sodium (Lovenox Inj) 40 mg Q24H SQ Last administered on 01/08/17 01:14; Start 01/07/17 at 01:00 Famotidine (Pepcid) 20 mg BID PO Last administered on 01/07/17 19:55; Start 01/07/17 at 10:00 Guaifenesin (Mucinex Er) 600 mg BID PO Last administered on 01/07/17 19:56; Start 01/07/17 at 13:43 Lactobacillus Acidophilus (Lactinex) 1 tab Q12HR PO Last administered on 19:55; Start 01/07/17 at 21:00 Lactulose (Lactulose Liq) 30 ml DAILY PRN PO SEVERE CONSITIPATION; Start 01/07 at 01:00 Methylprednisolone Sodium Succinate (SoluMEDROL INJ) 125 mg ONCE ONCE IV PUSH Last administered on 01/06/17 22:19; Start 01/06/17 at 21:45; Stop 01/06/17 at 21:46; Status DC Morphine Sulfate (Morphine Inj) 4 mg Q3H PRN IV PUSH Pain 6-10;if unable to take PO; Start 01/07/17 at 01:00 Naloxone HCl (Narcan Inj) 0.4 mg UNSCH PRN IV PUSH SEE LABEL COMMENTS; Start 01/07/17 at 01:00 Ondansetron HCl (Zofran Inj) 4 mg Q6H PRN IVP NAUSEA OR VOMITING; Start at 01:00 Patient Own Medication PT OWN MED: TIOTROPIUM 2.5M... DAILY INH ; Start at 09:00; Status Future Hold Piperacillin Sod/ Tazobactam Sod 50 ml @ 100 mls/hr Q8H IV Last administered on 01/08/17 01:14; Start 01/07/17 at 16:00 Prednisone (Deltasone) 20 mg BID PO Last administered on 01/07/17 19:55; Start 01/07/17 at 21:00 Senna/Docusate Sodium (Mila-Colace) 1 tab BID PO Last administered on 19:55; Start 01/07/17 at 09:00 Sennosides (Senokot) 17.2 mg Q12H PRN PO Moderate constipation; Start at 01:00 Sodium Chloride (NS Flush) 2 ml BID IV FLUSH ; Start 01/07/17 at 09:00 Zolpidem Tartrate (Ambien) 5 mg HS PRN PO INSOMNIA; Start 01/07/17 at 01:00 Assessment and Plan Problem List: (1) COPD exacerbation ICD Codes: J44.1 - Chronic obstructive pulmonary disease with (acute) exacerbation Status: Acute (2) Pneumonia ICD Codes: J18.9 - Pneumonia, unspecified organism Status: Acute Assessment and Plan breathing a bit better will order non codeine cough syrup and fu cxr Problem Qualifiers (1) Pneumonia: Qualified Codes: J18.1 - Lobar pneumonia, unspecified organism Luis Alberto Campos DO Jan 08, 2017 09:15
[2017-01-08] MEDS: RESP: ALBUTEROL 2.5 MG/IPRATROPIUM 0.5 MG NEB (SCH) NEB ×3 (09:20→19:31)
[2017-01-08] MEDS: LACTOBACILLUS ACIDOPHILUS TAB PO SCH ×2 (09:28→20:26)
[2017-01-08] MEDS: ACYCLOVIR 200 MG CAP PO SCH ×2 (09:28→20:26)
[2017-01-08] MEDS: guaiFENesin E.R. 600 MG TAB PO SCH ×2 (09:28→20:26)
[2017-01-08] MEDS: FAMOTIDINE 20 MG TAB PO SCH ×2 (09:28→20:26)
[2017-01-08] MEDS: predniSONE 20 MG TAB PO SCH ×2 (09:28→20:26)
[2017-01-08] MEDS: DOCUSATE SODIUM 50 MG/SENNA 8.6 MG TAB PO SCH ×2 (09:29→20:26)
[2017-01-08] MEDS: BECLOMETHASONE DIPROPIONATE 40 MCG/ACT 8.7 GM INHALER INH SCH ×2 (09:30→20:27)
[2017-01-08] MEDS: SODIUM CHLORIDE 0.9% FLUSH 10 ML FLUSH IV FLUSH SCH ×2 (09:30→20:27)
--- NOTE | 2017-01-08 10:59 | RADRPT ---
EXAM DATE/TIME: 01/08/2017 10:26 [facility] COMPARISON: CT PULMONARY ANGIOGRAM, January 06, 2017, 23:28. CHEST PA & LAT, May 06, 2016, 8:53. INDICATIONS : Cough and shortness of breath. MEDICAL HISTORY : Chronic obstructive pulmonary disease. Emphysema. Asthma. Chronic bronchitis. SURGICAL HISTORY : None. ENCOUNTER: Initial ACUITY: 2 days PAIN SCORE: 0/10 LOCATION: Bilateral chest FINDINGS: Advanced emphysematous chronic obstructive pulmonary disease is noted. Large emphysematous areas are seen throughout both upper lobes. Significantly less consolidation is evident within the right lower lobe. There are no new consolidating infiltrates. Heart and mediastinal structures are unchanged. CONCLUSION: Decreasing consolidation right lower lobe. Advanced emphysematous chronic obstructive ulnar disease. Kristopher Awan MD on January 08, 2017 at 10:53 Board Certified Radiologist. This report was verified electronically.
--- NOTE | 2017-01-08 18:53 | HHI.PR ---
Subjective Remarks C/O cough small amount whish yellowish sputum no sob at rest Objective Vital Signs Date Time Temp Pulse Resp B/P (MAP) Pulse Ox O2 Delivery O2 Flow Rate FiO2 01/08/17 16:00 96.8 102 20 129/86 (100) 94 01/08/17 12:00 97.2 91 20 130/59 (82) 94 01/08/17 09:22 96 Nasal Cannula 4.00 01/08/17 08:00 97.1 75 20 104/69 (81) 94 01/08/17 00:00 96.5 85 18 101/60 (74) 95 01/07/17 21:12 94 Nasal Cannula 3.00 01/07/17 20:11 96.1 84 18 106/69 (81) 94 I/O 01/07/17 01/07/17 01/07/17 01/08/17 01/08/17 01/08/17 07:00 15:00 23:00 07:00 15:00 23:00 Intake Total 830 ml 50 ml 720 ml Output Total 300 ml Balance 830 ml -300 ml 50 ml 720 ml Intake Oral 480 ml 720 ml IV Total 350 ml 50 ml Output Urine Total 300 ml # Voids 1 3 4 # Bowel Movements 0 Result Diagram: 01/08/1742301/08/17423 Objective Remarks GENERAL: SKIN: Warm and dry. HEAD: Atraumatic. Normocephalic. EYES: Pupils equal and round. No scleral icterus. No injection or drainage. ENT: No nasal bleeding or discharge. Mucous membranes pink and moist. NECK: Trachea midline. No JVD. CARDIOVASCULAR: Regular rate and rhythm. RESPIRATORY: No accessory muscle use.scattered rhonchi to auscultation. Breath sounds equal bilaterally. GASTROINTESTINAL: Abdomen soft, non-tender, nondistended. Hepatic and splenic margins not palpable. MUSCULOSKELETAL: Extremities without clubbing, cyanosis, or edema. No obvious deformities. NEUROLOGICAL: Awake and alert. No obvious cranial nerve deficits. Motor grossly within normal limits. Five out of 5 muscle strength in the arms and legs. Normal speech. PSYCHIATRIC: Appropriate mood and affect; insight and judgment normal. Assessment and Plan Assessment and Plan assessment respiratory failure copd exacerbation plsn o2 as needed bronchodilator therapy increase activity Nelly Villegas MD Jan 08, 2017 18:53
[2017-01-08] MEDS: ACETAMINOPHEN 325 MG TAB PO PRN (20:03)
[2017-01-08] MEDS: guaiFENesin/DEXTROMETHORPHAN 200 MG/20 MG/10 ML CUP PO PRN (20:26)
[2017-01-08] MEDS: AZITHROMYCIN INJ 500 MG in SODIUM CHLOR 0.9% 250 ML INJ 250 ML IV SCH (22:33)
[2017-01-08] MEDS: RESP: ALBUTEROL 1.25 MG/3 ML NEB (PRN) NEB (22:44)
[2017-01-09] VITALS (7 sets, daily range): BP systolic 106–121; BP diastolic 64–83; PULSE 67–92; RESP 19–20; TEMP 96.8–97.8; O2SAT 91–98
[2017-01-09] MEDS: PIPERACIL-TAZO 3.375 GM PREMIX 50 ML IV SCH ×4 (00:08→23:52)
[2017-01-09] MEDS: ENOXAPARIN SODIUM 40 MG/0.4 ML SYRINGE SQ SCH (01:06)
[2017-01-09] MEDS: guaiFENesin/DEXTROMETHORPHAN 200 MG/20 MG/10 ML CUP PO PRN ×5 (01:06→21:37)
[2017-01-09] MEDS: SODIUM CHLOR 0.9% 1000 ML INJ 1,000 ML IV SCH ×3 (02:45→22:58)
[2017-01-09] MEDS: RESP: ALBUTEROL 1.25 MG/3 ML NEB (PRN) NEB (05:18)
[2017-01-09 07:04] LABS: HEMATOCRIT 40.3 % (35.0-46.0); MEAN CELL VOLUME 95.3 FL (80.0-100.0); MEAN CORPUSCULAR HEMOGLOBIN 32.3 PG (27.0-34.0); MEAN CORPUSCULAR HGB CONC 33.9 % (32.0-36.0); PLATELET COUNT 340 TH/MM3 (150-450); RED BLOOD COUNT 4.23 MIL/MM3 (4.00-5.30); RED CELL DISTRIBUTION WIDTH 13.4 % (11.6-17.2); REVIEW FLAG FINAL; WHITE BLOOD COUNT 24.9 TH/MM3 (4.0-11.0)
[2017-01-09 07:26] LABS: BICARBONATE 26.3 MEQ/L (21.0-32.0); POTASSIUM 4.2 MEQ/L (3.5-5.1)
[2017-01-09] MEDS: RESP: ALBUTEROL 2.5 MG/IPRATROPIUM 0.5 MG NEB (SCH) NEB ×3 (08:04→20:58)
[2017-01-09] MEDS: ACYCLOVIR 200 MG CAP PO SCH ×2 (10:05→20:41)
[2017-01-09] MEDS: BECLOMETHASONE DIPROPIONATE 40 MCG/ACT 8.7 GM INHALER INH SCH ×2 (10:06→20:42)
[2017-01-09] MEDS: predniSONE 20 MG TAB PO SCH ×2 (10:06→20:42)
[2017-01-09] MEDS: LACTOBACILLUS ACIDOPHILUS TAB PO SCH ×2 (10:06→20:42)
[2017-01-09] MEDS: DOCUSATE SODIUM 50 MG/SENNA 8.6 MG TAB PO SCH ×2 (10:06→20:42)
[2017-01-09] MEDS: FAMOTIDINE 20 MG TAB PO SCH ×2 (10:06→20:42)
[2017-01-09] MEDS: guaiFENesin E.R. 600 MG TAB PO SCH ×2 (10:06→20:42)
[2017-01-09] MEDS: SODIUM CHLORIDE 0.9% FLUSH 10 ML FLUSH IV FLUSH SCH ×2 (10:07→20:42)
[2017-01-09] MEDS: ACETAMINOPHEN 325 MG TAB PO PRN (10:40)
--- NOTE | 2017-01-09 12:07 | HHI.PR ---
Subjective Remarks C/O cough small amount whish yellowish sputum no sob at rest Objective Vital Signs Date Time Temp Pulse Resp B/P (MAP) Pulse Ox O2 Delivery O2 Flow Rate FiO2 01/09/17 08:08 95 Nasal Cannula 4.00 01/09/17 08:00 97.8 92 20 115/68 (84) 92 01/09/17 00:15 96.8 91 20 111/83 (92) 95 01/08/17 20:25 97.5 112 19 114/64 (81) 96 01/08/17 19:35 93 Nasal Cannula 4.00 01/08/17 16:00 96.8 102 20 129/86 (100) 94 I/O 01/08/17 01/08/17 01/08/17 01/09/17 01/09/17 01/09/17 07:00 15:00 23:00 07:00 15:00 23:00 Intake Total 50 ml 1080 ml 632 ml Balance 50 ml 1080 ml 632 ml Intake Oral 1080 ml 240 ml IV Total 50 ml 392 ml # Voids 3 5 2 # Bowel Movements 0 0 Result Diagram: 01/09/17 0601/09/17 06 Objective Remarks GENERAL: SKIN: Warm and dry. HEAD: Atraumatic. Normocephalic. EYES: Pupils equal and round. No scleral icterus. No injection or drainage. ENT: No nasal bleeding or discharge. Mucous membranes pink and moist. NECK: Trachea midline. No JVD. CARDIOVASCULAR: Regular rate and rhythm. RESPIRATORY: No accessory muscle use.scattered rhonchi to auscultation. Breath sounds equal bilaterally. GASTROINTESTINAL: Abdomen soft, non-tender, nondistended. Hepatic and splenic margins not palpable. MUSCULOSKELETAL: Extremities without clubbing, cyanosis, or edema. No obvious deformities. NEUROLOGICAL: Awake and alert. No obvious cranial nerve deficits. Motor grossly within normal limits. Five out of 5 muscle strength in the arms and legs. Normal speech. PSYCHIATRIC: Appropriate mood and affect; insight and judgment normal. Assessment and Plan Assessment and Plan assessment respiratory failure copd exacerbation plsn o2 as needed bronchodilator therapy increase activity Nelly Villegas MD Jan 09, 2017 12:07
--- NOTE | 2017-01-09 14:45 | HHI.PR ---
Subjective Remarks breathing better but but still marked cough in evenings Objective Vital Signs Date Time Temp Pulse Resp B/P (MAP) Pulse Ox O2 Delivery O2 Flow Rate FiO2 01/09/17 12:00 97.6 67 20 106/64 (78) 91 01/09/17 08:08 95 Nasal Cannula 4.00 01/09/17 08:00 97.8 92 20 115/68 (84) 92 01/09/17 00:15 96.8 91 20 111/83 (92) 95 01/08/17 20:25 97.5 112 19 114/64 (81) 96 01/08/17 19:35 93 Nasal Cannula 4.00 01/08/17 16:00 96.8 102 20 129/86 (100) 94 I/O 01/08/17 01/08/17 01/08/17 01/09/17 01/09/17 01/09/17 07:00 15:00 23:00 07:00 15:00 23:00 Intake Total 50 ml 1080 ml 632 ml 50 ml Balance 50 ml 1080 ml 632 ml 50 ml Intake Oral 1080 ml 240 ml IV Total 50 ml 392 ml 50 ml # Voids 3 5 2 # Bowel Movements 0 0 Result Diagram: 01/09/17 0606 01/09/17 0606 Imaging Last Impressions Chest X-Ray 01/08/17 0000 Signed Impressions: Service Date/Time: Sunday, January 08, 2017 10:26 - CONCLUSION: Decreasing consolidation right lower lobe. Advanced emphysematous chronic obstructive ulnar disease. Kristopher Awan MD CT Angiography 01/06/17 0000 Signed Impressions: Service Date/Time: December 23:28 - CONCLUSION: 1. No evidence of pulmonary embolism. 2. Right lower lobe collapse. Centrally obstructing lesion is not excluded. Bronchoscopy could be performed for further evaluation if clinically indicated. 3. Severe emphysema Rolando Robles MD Objective Remarks GENERAL: Well-nourished, well-developed patient. SKIN: Warm and dry. HEAD: Normocephalic. EYES: No scleral icterus. No injection or drainage. NECK: Supple, trachea midline. No JVD or lymphadenopathy. CARDIOVASCULAR: Regular rate and rhythm without murmurs, gallops, or rubs. RESPIRATORY: Breath sounds diminished RLL with rhonchi and rales GASTROINTESTINAL: Abdomen soft, non-tender, nondistended. EXTREMITIES: No cyanosis, or edema. NEUROLOGICAL: Awake, alert, and oriented x 3. Non-focal. Medications and IVs Inpatient Medications Acetaminophen (Tylenol) 650 mg Q6H PRN PO PAIN SCALE 1 TO 2 Last administered on 01/09/17 10:40; Start 01/07/17 at 01:00 Acetaminophen/ Hydrocodone Bitart ([place] [facility]-325 Mg) 1 tab Q4H PRN PO PAIN SCALE 3 TO 5; Start 01/07/17 at 01:00 Acetaminophen/ Hydrocodone Bitart ([place] 7.5-325 Mg) 1 tab Q4H PRN PO PAIN SCALE 6 TO 10; Start 01/07/17 at 01:00 Acyclovir (Zovirax) 400 mg Q12HR PO Last administered on 01/09/17 10:05; Start 01/07/17 at 10:00 Albuterol Sulfate (Albuterol Neb) 1.25 mg Q4HR NEB PRN NEB SHORTNESS OF BREATH Last administered on 01/09/17 05:18; Start 01/07/17 at 01:00 Albuterol/ Ipratropium (Duoneb Neb) 1 ampule TID NEB NEB Last administered on 01/09/17 13:17; Start 01/07/17 at 08:00 Azithromycin 500 mg/Sodium Chloride 250 ml @ 250 mls/hr Q24H IV Last administered on 01/08/17 22:33; Start 01/07/17 at 22:00 Beclomethasone Dipropionate (Qvar 40 Mcg Inh) 1 puff BID INH Last administered on 01/09/17 10:06; Start 01/07/17 at 09:00 Benzonatate (Tessalon) 200 mg TID PRN PO COUGH Last administered on 01/07/17 22:27; Start 01/07/17 at 13:45 Bisacodyl (Dulcolax Supp) 10 mg DAILY PRN RECTAL SEVERE CONSITIPATION; Start 01/07/17 at 01:00 Budesonide/ Formoterol Fumarate (Symbicort 160-4.5 Inh) 1 puff Q12HR INH Last administered on 01/07/17 10:06; Start 01/07/17 at 09:00; Stop 01/07/17 at 14 :56; Status DC Ceftriaxone Sodium 1000 mg/ Sodium Chloride 100 ml @ 200 mls/hr Q24H IV ; Start 01/07/17 at 23:00; Stop 01/07/17 at 23:00; Status DC Enoxaparin Sodium (Lovenox Inj) 40 mg Q24H SQ Last administered on 01/09/17 01:06; Start 01/07/17 at 01:00 Famotidine (Pepcid) 20 mg BID PO Last administered on 01/09/17 10:06; Start 01/07/17 at 10:00 Guaifenesin (Mucinex Er) 600 mg BID PO Last administered on 01/09/17 10:06; Start 01/07/17 at 13:43 Guaifenesin/ Dextromethorphan (Robitussin Dm 200-20 Mg/10 ml Liq) 10 ml Q4H PRN PO COUGH Last administered on 01/09/17 10:40; Start 01/08/17 at 10:00 Lactobacillus Acidophilus (Lactinex) 1 tab Q12HR PO Last administered on 10:06; Start 01/07/17 at 21:00 Lactulose (Lactulose Liq) 30 ml DAILY PRN PO SEVERE CONSITIPATION; Start 01/07 at 01:00 Methylprednisolone Sodium Succinate (SoluMEDROL INJ) 125 mg ONCE ONCE IV PUSH Last administered on 01/06/17 22:19; Start 01/06/17 at 21:45; Stop 01/06/17 at 21:46; Status DC Morphine Sulfate (Morphine Inj) 4 mg Q3H PRN IV PUSH Pain 6-10;if unable to take PO; Start 01/07/17 at 01:00 Naloxone HCl (Narcan Inj) 0.4 mg UNSCH PRN IV PUSH SEE LABEL COMMENTS; Start 01/07/17 at 01:00 Ondansetron HCl (Zofran Inj) 4 mg Q6H PRN IVP NAUSEA OR VOMITING; Start at 01:00 Patient Own Medication PT OWN MED: TIOTROPIUM 2.5M... DAILY INH ; Start at 09:00; Status Future Hold Piperacillin Sod/ Tazobactam Sod 50 ml @ 100 mls/hr Q8H IV Last administered on 01/09/17 10:06; Start 01/07/17 at 16:00 Prednisone (Deltasone) 20 mg BID PO Last administered on 01/09/17 10:06; Start 01/07/17 at 21:00 Senna/Docusate Sodium (Mila-Colace) 1 tab BID PO Last administered on 10:06; Start 01/07/17 at 09:00 Sennosides (Senokot) 17.2 mg Q12H PRN PO Moderate constipation; Start at 01:00 Sodium Chloride (NS Flush) 2 ml BID IV FLUSH Last administered on 01/09/17 10 :07; Start 01/07/17 at 09:00 Zolpidem Tartrate (Ambien) 5 mg HS PRN PO INSOMNIA; Start 01/07/17 at 01:00 Assessment and Plan Problem List: (1) COPD exacerbation ICD Codes: J44.1 - Chronic obstructive pulmonary disease with (acute) exacerbation Status: Acute (2) Pneumonia ICD Codes: J18.9 - Pneumonia, unspecified organism Status: Acute Assessment and Plan ct shows RLL collapse may require bronch Discussed Condition With patient and daughter Problem Qualifiers (1) Pneumonia: Qualified Codes: J18.1 - Lobar pneumonia, unspecified organism Luis Alberto Campos DO Jan 09, 2017 14:45
[2017-01-09] MEDS ORDERED: RESP: ALBUTEROL 1.25 MG/3 ML NEB (PRN) NEB (17:15)
[2017-01-09] MEDS: AZITHROMYCIN INJ 500 MG in SODIUM CHLOR 0.9% 250 ML INJ 250 ML IV SCH (21:37)
[2017-01-10] VITALS (7 sets, daily range): BP systolic 105–140; BP diastolic 72–92; PULSE 74–113; RESP 18–19; TEMP 96–98.5; O2SAT 90–95
[2017-01-10] MEDS: guaiFENesin/DEXTROMETHORPHAN 200 MG/20 MG/10 ML CUP PO PRN ×6 (01:29→22:21)
[2017-01-10] MEDS: ENOXAPARIN SODIUM 40 MG/0.4 ML SYRINGE SQ SCH (01:31)
[2017-01-10] MEDS: RESP: ALBUTEROL 1.25 MG/3 ML NEB (PRN) NEB ×2 (01:45→05:29)
[2017-01-10 06:26] LABS: BICARBONATE 29.2 MEQ/L (21.0-32.0); POTASSIUM 4.3 MEQ/L (3.5-5.1)
[2017-01-10 06:50] LABS: HEMATOCRIT 39.3 % (35.0-46.0); MEAN CELL VOLUME 95.3 FL (80.0-100.0); MEAN CORPUSCULAR HEMOGLOBIN 32.2 PG (27.0-34.0); MEAN CORPUSCULAR HGB CONC 33.8 % (32.0-36.0); PLATELET COUNT 331 TH/MM3 (150-450); RED BLOOD COUNT 4.12 MIL/MM3 (4.00-5.30); REVIEW FLAG FINAL; WHITE BLOOD COUNT 16.4 TH/MM3 (4.0-11.0)
[2017-01-10] MEDS: RESP: ALBUTEROL 2.5 MG/IPRATROPIUM 0.5 MG NEB (SCH) NEB ×4 (07:33→22:26)
--- NOTE | 2017-01-10 07:58 | HHI.PR ---
Subjective Remarks Receiving breathing treatment. Tearful when discussing the weekend. Objective Vital Signs Date Time Temp Pulse Resp B/P (MAP) Pulse Ox O2 Delivery O2 Flow Rate FiO2 01/10/17 07:35 90 Nasal Cannula 3.00 01/10/17 00:20 98.2 74 19 119/73 (88) 95 01/09/17 21:01 98 Nasal Cannula 4.00 01/09/17 20:30 97.7 80 19 110/72 (85) 95 01/09/17 20:00 95 Nasal Cannula 4.00 01/09/17 16:01 97.0 86 20 121/79 (93) 94 01/09/17 12:00 97.6 67 20 106/64 (78) 91 01/09/17 08:08 95 Nasal Cannula 4.00 01/09/17 08:00 97.8 92 20 115/68 (84) 92 I/O 01/09/17 01/09/17 01/09/17 01/10/17 01/10/17 01/10/17 07:00 15:00 23:00 07:00 15:00 23:00 Intake Total 632 ml 50 ml 770 ml 540 ml Balance 632 ml 50 ml 770 ml 540 ml Intake Oral 240 ml 720 ml 240 ml IV Total 392 ml 50 ml 50 ml 300 ml # Voids 2 2 2 # Bowel Movements 0 1 0 Result Diagram: 01/10/17 0525 01/10/17 0525 Imaging Last 72 hours Impressions Chest X-Ray 01/08/17 0000 Signed Impressions: Service Date/Time: Sunday, January 08, 2017 10:26 - CONCLUSION: Decreasing consolidation right lower lobe. Advanced emphysematous chronic obstructive ulnar disease. Kristopher Awan MD Objective Remarks GENERAL: Alert and confused SKIN: Warm and dry. HEAD: Normocephalic. EYES: No scleral icterus. No injection or drainage. NECK: Supple, trachea midline. No JVD or lymphadenopathy. CARDIOVASCULAR: Regular rate and rhythm without murmurs, gallops, or rubs. RESPIRATORY: Breath sounds equal bilaterally. No accessory muscle use. GASTROINTESTINAL: Abdomen soft, non-tender, nondistended. MUSCULOSKELETAL: No cyanosis, or edema. BACK: Nontender without obvious deformity. No CVA tenderness. Medications and IVs Current Medications Medications (Trade) Dose Ordered Sig/Tigist Route Start Time Stop Time Status Last Admin Sodium Chloride 1,000 ml @ 100 mls/hr Q10H IV 01/07/17 00:58 01/09/17 02:45 (NS Flush) 2 ml UNSCH PRN IV FLUSH 01/07/17 01:00 (NS Flush) 2 ml BID IV FLUSH 01/07/17 09:00 01/09/17 20:42 (Tylenol) 650 mg Q4H PRN PO 01/07/17 01:00 (Zofran Inj) 4 mg Q6H PRN IVP 01/07/17 01:00 (Ambien) 5 mg HS PRN PO 01/07/17 01:00 (Lovenox Inj) 40 mg Q24H SQ 01/07/17 01:00 01/10/17 01:31 (Tylenol) 650 mg Q6H PRN PO 01/07/17 01:00 01/09/17 10:40 ([place] 5-325 Mg) 1 tab Q4H PRN PO 01/07/17 01:00 ([place] 7.5-325 Mg) 1 tab Q4H PRN PO 01/07/17 01:00 (Morphine Inj) 4 mg Q3H PRN IV PUSH 01/07/17 01:00 (Narcan Inj) 0.4 mg UNSCH PRN IV PUSH 01/07/17 01:00 (Mila-Colace) 1 tab BID PO 01/07/17 09:00 01/09/17 20:42 (Senokot) 17.2 mg Q12H PRN PO 01/07/17 01:00 (Dulcolax Supp) 10 mg DAILY PRN RECTAL 01/07/17 01:00 (Lactulose Liq) 30 ml DAILY PRN PO 01/07/17 01:00 (Qvar 40 Mcg Inh) 1 puff BID INH 01/07/17 09:00 01/09/17 20:42 Patient Own Medication PT OWN MED:Conjugated Estrogens-Medroxypro... DAILY PO 01/07/17 09:00 Future Hold Patient Own Medication PT OWN MED: TIOTROPIUM 2.5M... DAILY INH 01/07/17 09:00 Future Hold (Zovirax) 400 mg Q12HR PO 01/07/17 10:00 01/09/17 20:41 Azithromycin 500 mg/Sodium Chloride 250 ml @ 250 mls/hr Q24H IV 01/07/17 22:00 01/09/17 21:37 (Pepcid) 20 mg BID PO 01/07/17 10:00 01/09/17 20:42 (Mucinex Er) 600 mg BID PO 01/07/17 13:43 01/09/17 20:42 (Tessalon) 200 mg TID PRN PO 01/07/17 13:45 01/07/17 22:27 (Deltasone) 20 mg BID PO 01/07/17 21:00 01/09/17 20:42 Piperacillin Sod/ Tazobactam Sod 50 ml @ 100 mls/hr Q8H IV 01/07/17 16:00 01/09/17 23:52 (Lactinex) 1 tab Q12HR PO 01/07/17 21:00 01/09/17 20:42 (Robitussin Dm 200-20 Mg/10 ml Liq) 10 ml Q4H PRN PO 01/08/17 10:00 01/10/17 05:23 (Duoneb Neb) 1 ampule QID NEB NEB 01/09/17 20:00 01/10/17 07:33 (Albuterol Neb) 1.25 mg Q2HR NEB PRN NEB 01/09/17 17:30 01/10/17 05:29 (Flu (Quadrivalent) Vaccine Inj) 0.5 ml ONCE ONCE IM 01/11/17 10:00 01/11/17 10:01 (Pneumovax-23 Inj) 25 mcg ONCE ONCE IM 01/11/17 10:00 01/11/17 10:01 Assessment and Plan Problem List: (1) COPD with acute exacerbation ICD Codes: J44.1 - Chronic obstructive pulmonary disease with (acute) exacerbation Status: Acute (2) Pneumonia ICD Codes: J18.9 - Pneumonia, unspecified organism Status: Acute (3) Cough ICD Codes: R05 - Cough Status: Acute (4) Herpes ICD Codes: B00.9 - Herpesviral infection, unspecified Assessment and Plan 01/07/17 Pneumonia: Pulmonary consulted pending. Chest Xray with right lower lobe infiltrate and bullous emphysematous changes. On antibiotics, steroids, and breathing treatment. Having difficulty sleeping will order PRN Herpes: Patient requesting that home dose of acyclovir be resumed. Ordered GI and DVT prophylaxis ordered 01/10/17 Pneumonia: Pulmonary consulted and managing. Significant underlying COPD / emphysema. O2 dependent at home. Continues to have significant cough that is keeping her up at night. On Mucinex. Reports that she feels like is is breaking up. WBC improving and has remained afebrile Anxiety: Patient tearful during visit. Reports that she gets really scared when she can no catch her breath after a cough episode. Will order Xanax PRN /I and the BEEF CATTLE FARMER have both examined this patient and reviewed this note and I agree with these findings and plan of care. Luis Alberto Campos DO Discharge Planning Home with [facility] Problem Qualifiers (1) Pneumonia: Qualified Codes: J18.1 - Lobar pneumonia, unspecified organism Rosemary Barkley. BEEF CATTLE FARMER Jan 10, 2017 07:58
[2017-01-10] MEDS: FAMOTIDINE 20 MG TAB PO SCH ×2 (08:27→20:06)
[2017-01-10] MEDS: guaiFENesin E.R. 600 MG TAB PO SCH ×2 (08:27→20:06)
[2017-01-10] MEDS: predniSONE 20 MG TAB PO SCH (08:27)
[2017-01-10] MEDS: SODIUM CHLORIDE 0.9% FLUSH 10 ML FLUSH IV FLUSH SCH ×2 (08:28→20:07)
[2017-01-10] MEDS: PIPERACIL-TAZO 3.375 GM PREMIX 50 ML IV SCH (08:28)
[2017-01-10] MEDS: ACYCLOVIR 200 MG CAP PO SCH ×2 (08:28→20:06)
[2017-01-10] MEDS: BECLOMETHASONE DIPROPIONATE 40 MCG/ACT 8.7 GM INHALER INH SCH ×2 (08:35→20:07)
[2017-01-10] MEDS: DOCUSATE SODIUM 50 MG/SENNA 8.6 MG TAB PO SCH ×2 (09:00→20:06)
[2017-01-10] MEDS: LACTOBACILLUS ACIDOPHILUS TAB PO SCH ×2 (09:53→20:06)
[2017-01-10] MEDS: SODIUM CHLOR 0.9% 1000 ML INJ 1,000 ML IV SCH ×2 (18:58→19:10)
[2017-01-10] MEDS: AMOXICILLIN/CLAVULANATE K 875 MG TAB PO SCH (20:13)
[2017-01-10] MEDS: AZITHROMYCIN INJ 500 MG in SODIUM CHLOR 0.9% 250 ML INJ 250 ML IV SCH (22:23)
[2017-01-11] VITALS (7 sets, daily range): BP systolic 108–126; BP diastolic 69–84; PULSE 77–97; RESP 16–22; TEMP 96.8–99; O2SAT 93–95
[2017-01-11] MEDS: ENOXAPARIN SODIUM 40 MG/0.4 ML SYRINGE SQ SCH ×2 (00:35→23:42)
[2017-01-11] MEDS: ALPRAZolam 0.25 MG TAB PO PRN (00:35)
[2017-01-11] MEDS: SODIUM CHLOR 0.9% 1000 ML INJ 1,000 ML IV SCH ×3 (04:30→23:42)
[2017-01-11] MEDS: guaiFENesin/DEXTROMETHORPHAN 200 MG/20 MG/10 ML CUP PO PRN ×4 (06:02→19:37)
[2017-01-11] MEDS: LACTOBACILLUS ACIDOPHILUS TAB PO SCH ×2 (08:36→19:38)
[2017-01-11] MEDS: ACYCLOVIR 200 MG CAP PO SCH ×2 (08:36→19:39)
[2017-01-11] MEDS: AMOXICILLIN/CLAVULANATE K 875 MG TAB PO SCH ×2 (08:36→19:38)
[2017-01-11] MEDS: ACETAMINOPHEN 325 MG TAB PO PRN (08:37)
[2017-01-11] MEDS: guaiFENesin E.R. 600 MG TAB PO SCH ×2 (08:37→19:38)
[2017-01-11] MEDS: FAMOTIDINE 20 MG TAB PO SCH ×2 (08:38→19:37)
[2017-01-11] MEDS: DOCUSATE SODIUM 50 MG/SENNA 8.6 MG TAB PO SCH ×2 (08:38→19:38)
[2017-01-11] MEDS: predniSONE 20 MG TAB PO SCH (08:38)
[2017-01-11] MEDS: BECLOMETHASONE DIPROPIONATE 40 MCG/ACT 8.7 GM INHALER INH SCH ×2 (08:40→20:04)
[2017-01-11] MEDS: SODIUM CHLORIDE 0.9% FLUSH 10 ML FLUSH IV FLUSH SCH ×2 (08:40→19:38)
--- NOTE | 2017-01-11 09:00 | HHI.PR ---
Subjective Remarks Sitting on side of bed. Reports that last night was her best nights sleep. Purse lip breathing at times Objective Vital Signs Date Time Temp Pulse Resp B/P (MAP) Pulse Ox O2 Delivery O2 Flow Rate FiO2 01/11/17 07:35 98.5 77 18 111/74 (86) 94 01/11/17 00:30 96.8 97 19 108/69 (82) 93 01/10/17 22:28 94 Nasal Cannula 4.00 01/10/17 21:00 95 Nasal Cannula 4.00 01/10/17 20:30 98.5 82 19 140/92 (108) 95 01/10/17 16:00 96.9 84 18 105/72 (83) 95 01/10/17 11:53 97.8 113 18 121/72 (88) 93 I/O 01/10/17 01/10/17 01/10/17 01/11/17 01/11/17 01/11/17 07:00 15:00 23:00 07:00 15:00 23:00 Intake Total 540 ml 720 ml 360 ml 490 ml Output Total 200 ml Balance 540 ml 520 ml 360 ml 490 ml Intake Oral 240 ml 720 ml 360 ml 240 ml IV Total 300 ml 250 ml Output Urine Total 200 ml # Voids 2 2 1 2 # Bowel Movements 0 1 0 0 Result Diagram: 01/10/1752401/10/17524 Objective Remarks GENERAL: Alert and oriented SKIN: Warm and dry. HEAD: Normocephalic. EYES: No scleral icterus. No injection or drainage. NECK: Supple, trachea midline. No JVD or lymphadenopathy. CARDIOVASCULAR: Regular rate and rhythm without murmurs, gallops, or rubs. RESPIRATORY: Breath sounds diminished. No accessory muscle use. Purse lip breathing GASTROINTESTINAL: Abdomen soft, non-tender, nondistended. MUSCULOSKELETAL: No cyanosis, or edema. BACK: Nontender without obvious deformity. No CVA tenderness. Medications and IVs Current Medications Medications (Trade) Dose Ordered Sig/Tigist Route Start Time Stop Time Status Last Admin Sodium Chloride 1,000 ml @ 100 mls/hr Q10H IV 01/07/17 00:58 01/09/17 02:45 (NS Flush) 2 ml UNSCH PRN IV FLUSH 01/07/17 01:00 (NS Flush) 2 ml BID IV FLUSH 01/07/17 09:00 01/11/17 08:40 (Tylenol) 650 mg Q4H PRN PO 01/07/17 01:00 (Zofran Inj) 4 mg Q6H PRN IVP 01/07/17 01:00 (Ambien) 5 mg HS PRN PO 01/07/17 01:00 (Lovenox Inj) 40 mg Q24H SQ 01/07/17 01:00 01/11/17 00:35 (Tylenol) 650 mg Q6H PRN PO 01/07/17 01:00 01/11/17 08:37 ([place] 5-325 Mg) 1 tab Q4H PRN PO 01/07/17 01:00 ([place] 7.5-325 Mg) 1 tab Q4H PRN PO 01/07/17 01:00 (Morphine Inj) 4 mg Q3H PRN IV PUSH 01/07/17 01:00 (Narcan Inj) 0.4 mg UNSCH PRN IV PUSH 01/07/17 01:00 (Mila-Colace) 1 tab BID PO 01/07/17 09:00 01/11/17 08:38 (Senokot) 17.2 mg Q12H PRN PO 01/07/17 01:00 (Dulcolax Supp) 10 mg DAILY PRN RECTAL 01/07/17 01:00 (Lactulose Liq) 30 ml DAILY PRN PO 01/07/17 01:00 (Qvar 40 Mcg Inh) 1 puff BID INH 01/07/17 09:00 01/11/17 08:40 Patient Own Medication PT OWN MED:Conjugated Estrogens-Medroxypro... DAILY PO 01/07/17 09:00 Future Hold Patient Own Medication PT OWN MED: TIOTROPIUM 2.5M... DAILY INH 01/07/17 09:00 Future Hold (Zovirax) 400 mg Q12HR PO 01/07/17 10:00 01/11/17 08:36 Azithromycin 500 mg/Sodium Chloride 250 ml @ 250 mls/hr Q24H IV 01/07/17 22:00 01/10/17 22:23 (Pepcid) 20 mg BID PO 01/07/17 10:00 01/11/17 08:38 (Mucinex Er) 600 mg BID PO 01/07/17 13:43 01/11/17 08:37 (Tessalon) 200 mg TID PRN PO 01/07/17 13:45 01/07/17 22:27 (Lactinex) 1 tab Q12HR PO 01/07/17 21:00 01/11/17 08:36 (Robitussin Dm 200-20 Mg/10 ml Liq) 10 ml Q4H PRN PO 01/08/17 10:00 01/11/17 06:02 (Duoneb Neb) 1 ampule QID NEB NEB 01/09/17 20:00 01/10/17 22:26 (Albuterol Neb) 1.25 mg Q2HR NEB PRN NEB 01/09/17 17:30 01/10/17 05:29 (Flu (Quadrivalent) Vaccine Inj) 0.5 ml ONCE ONCE IM 01/11/17 10:00 01/11/17 10:01 (Pneumovax-23 Inj) 25 mcg ONCE ONCE IM 01/11/17 10:00 01/11/17 10:01 (Xanax) 0.25 mg Q8H PRN PO 01/10/17 08:00 01/11/17 00:35 (Deltasone) 20 mg DAILY PO 01/11/17 09:00 01/11/17 08:38 (Augmentin) 875 mg Q12HR PO 01/10/17 21:00 01/11/17 08:36 Assessment and Plan Problem List: (1) COPD with acute exacerbation ICD Codes: J44.1 - Chronic obstructive pulmonary disease with (acute) exacerbation Status: Acute (2) Pneumonia ICD Codes: J18.9 - Pneumonia, unspecified organism Status: Acute (3) Cough ICD Codes: R05 - Cough Status: Acute (4) Herpes ICD Codes: B00.9 - Herpesviral infection, unspecified Assessment and Plan 01/07/17 Pneumonia: Pulmonary consulted pending. Chest Xray with right lower lobe infiltrate and bullous emphysematous changes. On antibiotics, steroids, and breathing treatment. Having difficulty sleeping will order PRN Herpes: Patient requesting that home dose of acyclovir be resumed. Ordered GI and DVT prophylaxis ordered 01/10/17 Pneumonia: Pulmonary consulted and managing. Significant underlying COPD / emphysema. O2 dependent at home. Continues to have significant cough that is keeping her up at night. On Mucinex. Reports that she feels like is is breaking up. WBC improving and has remained afebrile Anxiety: Patient tearful during visit. Reports that she gets really scared when she can no catch her breath after a cough episode. Will order Xanax PRN 01/11/17 Pneumonia; Pulmonary managing. Prednisone decreased yesterday and Zosyn discontinued and augmentin strarted. Continues to have cough and uses purse lipo breathing at times. Anxiety; Reports that she took the Xanax and had her best nights sleep PT/OT ordered labs and chest xray Anticipate discharge tomorrow /I and the CAE ENGINEER have both examined this patient and reviewed this note and I agree with these findings and plan of care. Luis Alberto Campos DO Discharge Planning Home with [facility] Problem Qualifiers (1) Pneumonia: Qualified Codes: J18.1 - Lobar pneumonia, unspecified organism Rosemary Barkley [facility] Jan 11, 2017 09:00
--- NOTE | 2017-01-11 09:03 | HHI.FF ---
Face to Face Verification Diagnosis: (1) Weakness (2) COPD exacerbation (3) Pneumonia (4) Cough Physical Therapy Order: Evaluate and Treat Occupational Therapy Order: Evaluate and Treat Home Health Nursing Order: Medical education Oxygen administration education Nursing assessment with vital signs I have seen patient Alicia Alegre on 01/11/17. My clinical findings support the need for the requested home health care services because: Ltd mobility - disease progression Patient has SOB Deconditioned w/ increased weakness Need for psychosocial assistance I certify that my clinical findings support that this patient is homebound because: Hx COPD- exertion dyspnea/weakness Rosemary Barkley Jan 11, 2017 09:03
[2017-01-11] MEDS: RESP: ALBUTEROL 2.5 MG/IPRATROPIUM 0.5 MG NEB (SCH) NEB ×4 (09:15→20:07)
--- NOTE | 2017-01-11 09:59 | RADRPT ---
EXAM DATE/TIME: 01/11/2017 09:42 [place] COMPARISON: CHEST PA & LAT, January 08, 2017, 10:26. INDICATIONS : Shortness of breath, cough, congestion. MEDICAL HISTORY : Chronic obstructive pulmonary disease. SURGICAL HISTORY : None. ENCOUNTER: Subsequent ACUITY: 1 week PAIN SCORE: 0/10 LOCATION: Bilateral chest FINDINGS: PA and lateral views of the chest show no interval change. Bullous emphysematous changes again noted. Consolidation within the right lung base. No discrete effusion. Heart normal size. Aorta is mildly c alcified. A degenerative mildly scoliotic thoracic spine. CONCLUSION: 1. No change with diffuse emphysematous changes and right lower lobe consolidation. Bill Alexandra Jr., MD on January 11, 2017 at 9:56 Board Certified Radiologist. This report was verified electronically.
[2017-01-11] MEDS ORDERED: INFLUENZA VIRUS VACCINE (QUADRIVALENT) 0.5 ML SYR IM ONE (10:00)
[2017-01-11] MEDS ORDERED: PNEUMOCOCCAL POLYVALENT INJ 25 MCG/0.5 ML SYR IM ONE (10:00)
[2017-01-11 16:34] LABS: HEMATOCRIT 43.5 % (35.0-46.0); MEAN CELL VOLUME 95.5 FL (80.0-100.0); MEAN CORPUSCULAR HEMOGLOBIN 32.4 PG (27.0-34.0); MEAN CORPUSCULAR HGB CONC 33.9 % (32.0-36.0); PLATELET COUNT 357 TH/MM3 (150-450); RED BLOOD COUNT 4.56 MIL/MM3 (4.00-5.30); RED CELL DISTRIBUTION WIDTH 13.3 % (11.6-17.2); REVIEW FLAG FINAL; WHITE BLOOD COUNT 16.5 TH/MM3 (4.0-11.0)
[2017-01-11 16:40] LABS: BICARBONATE 31.4 MEQ/L (21.0-32.0); POTASSIUM 4.4 MEQ/L (3.5-5.1)
--- NOTE | 2017-01-11 21:39 | MD ---
cc: Ivelisse MARSHALL M.D. ADMISSION DATE: 01/07/2017 DISCHARGE DATE: 01/12/2017 REASON FOR ADMISSION Pneumonia, exacerbation of COPD. Ms. Alegre is a 76-year-old white female whom I have followed for about three years with severe COPD. She presented with cough, congestion and progressive dyspnea and a chest x-ray and CT was scan revealed an extensive right lower lobar pneumonia. She was admitted for treatment. She was started on IV antibiotics, Zosyn and Zithromax, subsequently switched to Augmentin and, over the last 24 hours, has remained afebrile. Chest x-ray has improved with some clearing of the infiltrate, although it is certainly not complete. Sputum culture revealed normal raf and urine was negative for Legionella and pneumococcus. White blood cell count has fallen from 25,000 to 16,000. She was also continued on her bronchodilators and prednisone, currently on 20 mg. Today we plan on getting her up ambulating her more to see how she does on her oxygen at 3-4 liters and, if doing well, could be discharged home tomorrow. I have asked her to see me back in 2 weeks at which time we will do a follow-up scan to be sure this area of infiltrate is clearing. She will go home on 20 mg of prednisone tapered over 2 weeks. Continue 7 days of Augmentin and I asked her to use a probiotic with that and she will continue her inhaled bronchodilators including [place], Qvar and her nebulizer. She also has oxygen at home. If she had any relapse of symptoms, I have asked her to come back to the emergency room for reevaluation. Otherwise, I will see her back in 2 weeks with a follow-up scan. MD HILDA Morales/ /1:24 PM /10:28 AM
[2017-01-11] MEDS: AZITHROMYCIN INJ 500 MG in SODIUM CHLOR 0.9% 250 ML INJ 250 ML IV SCH (22:29)
[2017-01-12] MEDS: guaiFENesin/DEXTROMETHORPHAN 200 MG/20 MG/10 ML CUP PO PRN ×3 (00:24→10:07)
[2017-01-12] MEDS: ALPRAZolam 0.25 MG TAB PO PRN (00:25)
[2017-01-12 00:35] VITALS: BP 126/78; PULSE 79; RESP 19; TEMP 96.8; O2SAT 94
[2017-01-12 08:00] VITALS: BP 127/79; PULSE 80; RESP 17; TEMP 97.1; O2SAT 92
[2017-01-12] MEDS ORDERED: ACYC200C66 PO (08:19)
[2017-01-12] MEDS ORDERED: PRED20 PO (08:19)
[2017-01-12] MEDS ORDERED: DEXT10SY2 PO (08:19)
[2017-01-12] MEDS ORDERED: guaiFENesin ER PO (08:19)
[2017-01-12] MEDS ORDERED: AMOX875T2 PO (08:19)
[2017-01-12] MEDS ORDERED: ALPR.25 PO (08:19)
--- NOTE | 2017-01-12 08:23 | HHI.DS ---
Discharge Summary Admission Date Jan 07, 2017 at 00:48 Discharge Date: Jan 12, 2017 Admitting Diagnosis pneumonia. Acute exacerbation COPD. (1) COPD with acute exacerbation ICD Codes: J44.1 - Chronic obstructive pulmonary disease with (acute) exacerbation Status: Acute (2) Pneumonia ICD Codes: J18.9 - Pneumonia, unspecified organism Status: Acute Brief History 76-year-old female that presents to the ED for evaluation of respiratory symptoms. Patient has a history of COPD and uses oxygen at home. Patient has a history of smoking quit over 20 years ago States that she's had this problem 10 days and is not getting better. She went to see her doctor who prescribed her prednisone. She has not improved since. She was not given antibiotics. She states compliant with her inhaler but today she went to visit her son and she did not have any of her inhalers or her nebulizers and became more short of breath. She gave herself breathing treatment when she got home she was still short of breath which is what prompted her evaluation today. Denies any abdominal pain. No nausea or vomiting. CBC/BMP: 01/11/17 1610 01/11/17 1610 Significant Findings Laboratory Tests Test 01/10/17 05:25 01/11/17 16:10 White Blood Count 16.4 TH/MM3 (4.0-11.0) 16.5 TH/MM3 (4.0-11.0) Random Glucose 109 MG/DL (74-106) 166 MG/DL (74-106) Calcium Level 8.4 MG/DL (8.5-10.1) Estimat Glomerular Filtration Rate 78 ML/MIN (>89) 65 ML/MIN (>89) PE at Discharge GENERAL: Alert and oriented SKIN: Warm and dry. HEAD: Normocephalic. EYES: No scleral icterus. No injection or drainage. NECK: Supple, trachea midline. No JVD or lymphadenopathy. CARDIOVASCULAR: Regular rate and rhythm without murmurs, gallops, or rubs. RESPIRATORY: Breath sounds diminished. No accessory muscle use. Purse lip breathing GASTROINTESTINAL: Abdomen soft, non-tender, nondistended. MUSCULOSKELETAL: No cyanosis, or edema. BACK: Nontender without obvious deformity. No CVA tenderness. Hospital Course Ms. Alegre is a 76-year-old white female whom I have followed for about three years with severe COPD. She presented with cough, congestion and progressive dyspnea and a chest x-ray and CT was scan revealed an extensive right lower lobar pneumonia. She was admitted for treatment. She was started on IV antibiotics, Zosyn and Zithromax, subsequently switched to Augmentin and, over the last 24 hours, has remained afebrile. Chest x-ray has improved with some clearing of the infiltrate, although it is certainly not complete. Sputum culture revealed normal raf and urine was negative for Legionella and pneumococcus. White blood cell count has fallen from 25,000 to 16,000. She was also continued on her bronchodilators and prednisone, currently on 20 mg. Today we plan on getting her up ambulating her more to see how she does on her oxygen at 3-4 liters and, if doing well, could be discharged home tomorrow. I have asked her to see me back in 2 weeks at which time we will do a follow-up scan to be sure this area of infiltrate is clearing. She will go home on 20 mg of prednisone tapered over 2 weeks. Continue 7 days of Augmentin and I asked her to use a probiotic with that and she will continue her inhaled bronchodilators including Stealto, Qvar and her nebulizer. She also has oxygen at home. If she had any relapse of symptoms, I have asked her to come back to the emergency room for reevaluation. Otherwise, I will see her back in 2 weeks with a follow-up scan. Pt Condition on Discharge: Good Discharge Disposition: Disch w/ Home Health Serv Discharge Instructions DIET: Follow Instructions for: As Tolerated, No Restrictions Activities you can perform: Regular-No Restrictions Follow up Referrals: Appointment for Follow Up @ [facility] P[facility] Follow-up @ [facility] New Medications: Acyclovir (Acyclovir) 200 Mg Cap 400 MG PO Q12HR for Infection for 30 Days, #60 CAP Alprazolam (Xanax) 0.25 Mg Tab 0.25 MG PO Q8H PRN for anxiety for 30 Days, #90 TAB Amoxicillin-Clavulanate (Amoxicillin-Clavulanate) 875-125 mg Tab 875 MG PO Q12HR for Infection for 7 Days, #14 TAB not for use in CrCl <30 mL/minute Dextromethorphan-Guaifenesin (Dextromethorphan/Guaifene 10-100 mg/5Ml) 100 Mg- 10 Mg/5 Ml Syp 10 ML PO Q4H PRN for COUGH for 7 Days, #1 BOTTLE Prednisone (Prednisone) 20 Mg Tab 20 MG PO DAILY for Broncospasm for 10 Days, #10 TAB Please take 1 tablet daily for 5 days then take 1/2 tablet for 5 days then 1/4 tablet for 5 days. [guaiFENesin ER] () 600 MG TABCR 600 MG PO BID for Cough for 10 Days, #20 Continued Medications: Albuterol Neb (Albuterol Neb) 1.25 Mg/3 Ml Neb 1.25 MG NEB Q4HR NEB PRN for SHORTNESS OF BREATH, #50 NEBULE 0 Refills Beclomethasone Inh (Qvar Inh) 40 Mcg/Act Aero 1 PUFF INH BID for Asthma Management, #1 INHALER 0 Refills Benzonatate (Tessalon Perles) 100 Mg Cap 100 MG PO TID PRN for COUGH, CAP 0 Refills Budesonide-Formoterol Inh (Symbicort Inh) 160-4.5 Mcg/Act Aero 1 PUFF INH Q12HR for Cough, #1 INHALER Conjugated Estrogens-Medroxyprogesterone (Prempro Blister Pack) 0.3-1.5 Mg Tab 1 TAB PO DAILY for Estrogen Supplements, #1 PACK 0 Refills Ipratropium-Albuterol Neb (Duoneb) 0.5-2.5 Mg/3 Ml Neb 1 AMPULE NEB TID NEB for Cough for 30 Days, ML Tiotropium-Olodaterol Inh (Stiolto Respimat Inh) 2.5-2.5 Mcg/Act Aero 2 PUFF INH DAILY for COPD, #1 INHALER 0 Refills Discontinued Medications: Prednisone (Prednisone) 20 Mg Tab 20 MG PO DAILY, TAB 0 Refills Rosemary Barkley Jan 12, 2017 08:22
[2017-01-12] MEDS: SODIUM CHLORIDE 0.9% FLUSH 10 ML FLUSH IV FLUSH SCH (09:00)
[2017-01-12] MEDS: RESP: ALBUTEROL 2.5 MG/IPRATROPIUM 0.5 MG NEB (SCH) NEB ×2 (09:07→12:59)
[2017-01-12] MEDS: predniSONE 20 MG TAB PO SCH (09:44)
[2017-01-12] MEDS: guaiFENesin E.R. 600 MG TAB PO SCH (09:44)
[2017-01-12] MEDS: AMOXICILLIN/CLAVULANATE K 875 MG TAB PO SCH (09:44)
[2017-01-12] MEDS: FAMOTIDINE 20 MG TAB PO SCH (09:44)
[2017-01-12] MEDS: ACYCLOVIR 200 MG CAP PO SCH (09:44)
[2017-01-12] MEDS: DOCUSATE SODIUM 50 MG/SENNA 8.6 MG TAB PO SCH (09:44)
[2017-01-12] MEDS: LACTOBACILLUS ACIDOPHILUS TAB PO SCH (09:44)
[2017-01-12] MEDS: BECLOMETHASONE DIPROPIONATE 40 MCG/ACT 8.7 GM INHALER INH SCH (09:46)
[2017-01-12] MEDS: SODIUM CHLOR 0.9% 1000 ML INJ 1,000 ML IV SCH (10:58)
--- NOTE | 2017-01-12 14:42 | OTSOAPIP ---
01/12/17- ATTEMPTED TO SEE PATIENT TODAY FOR EDUCATION ON HEP, HOWEVER PATIENT HAS ALREADY BEEN D/C. RECOMMENDED HOME HEALTH THERAPY FOR EDUCATION ON HEP TO INCREASE STRENGTH AND ENDURANCE TO REGAIN ACTIVITY TOLERANCE TO PLOF. Therapist: Marla Conley OT Signature on file
== END 2017-01-12 13:45 | disposition home health service (06) | DRG 190 ==
LOC: NEPE 21:15 → NEDA 01-07 00:48 → N06B 01-07 01:53
PROVIDERS: ADMIT Family Medicine; ATTEND Family Medicine
DX: J44.1 Chronic obstructive pulmonary disease with (acute) exacerbation (principal); J18.9 Pneumonia, unspecified organism; J98.19 Other pulmonary collapse; J44.0 Chronic obstructive pulmonary disease with (acute) lower respiratory infection; Z99.81 Dependence on supplemental oxygen; B00.9 Herpesviral infection, unspecified; R00.0 Tachycardia, unspecified; F41.9 Anxiety disorder, unspecified; Z87.891 Personal history of nicotine dependence; Z88.1 Allergy status to other antibiotic agents; Z88.5 Allergy status to narcotic agent
CPT/HCPCS: 71010; 71020; 71275; 80048; 80053; 85007; 85025; 85027; 85379; 87070; 87205; 87449; 93005; 94640; 94664; 96365; 96366; 96368; 96375; J0456; J0696; J1650; J2543; J2930; J7030; J7050; J7512; J7613; Q9967